=== PATIENT | female | born 1955 | race African-American/Black ===

== ENCOUNTER 2018-02-05 20:56 | Inpatient (IN) | payer MEDICARE, MEDICAID ==
[~2018-02-05] VITALS: Ht 157.5 cm; Wt 72.8 kg
[2018-02-05] MEDS ORDERED: SODIUM CHLORIDE 0.9% 1,000 ML IV ONE (21:51)
[2018-02-05] MEDS ORDERED: ONDANSETRON HCL 4MG/2ML INJ IV STA (21:51)
[2018-02-05] MEDS ORDERED: ACETAMINOPHEN 325MG TABLET PO ONE (22:00)
[2018-02-05 22:41] LABS: EOSINOPHILS % 0.2 % (0.0-5.0); HEMATOCRIT. 39.3 % (36.0-48.0); HEMOGLOBIN. 13.2 g/dL (12.0-16.0); LYMPHOCYTES % 22.1 % (20.0-50.0); MEAN CORPUSCULAR HEMOGLOBIN 32.5 pg (28.0-32.0); MEAN CORPUSCULAR VOLUME 97.3 fL (81.0-99.0); MEAN PLATELET VOLUME 8.2 fl (7.4-10.4); MONOCYTES % 11.8 % (2.0-8.0); NEUTROPHILS % 64.9 % (40.0-76.0); PLATELET 262 x1000/uL (130-400); RED BLOOD CELL COUNT 4.04 mill/uL (4.2-5.4); RED CELL DISTRIBUTION WIDTH 14.5 % (11.6-14.6)
[2018-02-05 22:51] LABS: PARTIAL THROMBOPLASTIN TIME 27.8 sec (23.4-31.0); PROTHROMBIN TIME 10.3 sec (9.1-11.1)
[2018-02-05 22:52] LABS: CHLORIDE 102 mEq/L (98-107)
[2018-02-06] MEDS ORDERED: ASPIRIN 325MG EC TABLET PO ONE (01:00)
[2018-02-06 03:25] VITALS: BP 136/76
[2018-02-06] MEDS ORDERED: ONDANSETRON HCL 4MG/2ML INJ IV PRN (07:00)
[2018-02-06] MEDS ORDERED: IPRATROPIUM/ALBUTEROL 0.5-3(2.5)MG/3ML NEB INH PRN (07:00)
[2018-02-06] MEDS ORDERED: LORAZEPAM 2MG/ML CPJ IV PRN (07:00)
[2018-02-06 08:00] VITALS: BP 136/67
[2018-02-06] MEDS: INSULIN LISPRO 100 UNITS/ML SUBCUT SCH ×4 (08:10→21:00)
[2018-02-06] MEDS ORDERED: DEXTROSE 50% WATER 50ML SYRINGE IV PRN (08:15)
[2018-02-06] MEDS: BLOOD SUGAR DIAGNOSTIC STRIP TEST SCH ×4 (08:24→21:10)
[2018-02-06] MEDS: ENOXAPARIN 40MG/0.4ML SYR SUBCUT SCH (08:28)
[2018-02-06] MEDS ORDERED: ENOXAPARIN 40MG/0.4ML SYR SUBCUT SCH (09:00)
[2018-02-06 10:50] LABS: CHLORIDE 106 mEq/L (98-107)
[2018-02-06 11:00] LABS: ETHANOL BLOOD < 10 mg/dL; HDL CHOLESTEROL 61 mg/dL (40-59); LDL CHOLESTEROL 104 mg/dL (5-100); T4 FREE 1.06 ng/dL (0.76-1.46)
[2018-02-06 11:23] LABS: VITAMIN B12 SERUM 251 pg/mL (211-911)
[2018-02-06 11:30] LABS: FOLIC ACID (FOLATE) SERUM > 20.00 ng/mL (>5.38)
[2018-02-06] MEDS: CLOPIDOGREL 75MG TABLET PO SCH (12:23)
[2018-02-06] MEDS ORDERED: ALEN70TA46 MT (12:59)
[2018-02-06] MEDS ORDERED: FERR325T6 MT (12:59)
[2018-02-06] MEDS ORDERED: HYDR200T35 PO (12:59)
[2018-02-06] MEDS ORDERED: CALC1TAB99 PO (12:59)
[2018-02-06] MEDS ORDERED: ERGO2000 PO (12:59)
[2018-02-06 16:00] VITALS: BP 147/85
[2018-02-06 16:48] LABS: CREATINE KINASE 464 IU/L (26-192); CREATINE KINASE MB FRACTION < 1.0 ng/mL (0.5-3.6)
[2018-02-06] MEDS: DOCUSATE SODIUM 100MG CAPSULE PO SCH (17:26)
[2018-02-06] MEDS: HYDROXYCHLOROQUINE SULFATE 200MG TABLET PO SCH (17:26)
[2018-02-06] MEDS: CYANOCOBALAMIN 1000MCG/ML VIAL IM SCH (18:58)
[2018-02-06 20:00] VITALS: BP 149/99
[2018-02-06] MEDS: POLYETHYLENE GLYCOL 3350 (17GM) 1 DOSE PACK PO SCH (21:00)
[2018-02-06] MEDS: ATORVASTATIN CALCIUM 40MG TABLET PO SCH (21:11)
[2018-02-06 23:41] LABS: CREATINE KINASE 445 IU/L (26-192); CREATINE KINASE MB FRACTION < 1.0 ng/mL (0.5-3.6)
[2018-02-07] VITALS: BP 146/87
[2018-02-07 04:00] VITALS: BP 142/92
[2018-02-07] MEDS: BLOOD SUGAR DIAGNOSTIC STRIP TEST SCH ×4 (07:40→21:00)
[2018-02-07 07:47] LABS: BASOPHILS % 0.6 % (0.0-2.0); EOSINOPHILS % 0.7 % (0.0-5.0); HEMATOCRIT. 36.2 % (36.0-48.0); HEMOGLOBIN. 12.3 g/dL (12.0-16.0); LYMPHOCYTES % 34.7 % (20.0-50.0); MEAN CORPUSCULAR HEMOGLOBIN 32.8 pg (28.0-32.0); MEAN CORPUSCULAR VOLUME 96.4 fL (81.0-99.0); MEAN PLATELET VOLUME 8.1 fl (7.4-10.4); MONOCYTES % 14.9 % (2.0-8.0); NEUTROPHILS % 49.1 % (40.0-76.0); PLATELET 251 x1000/uL (130-400); RED BLOOD CELL COUNT 3.76 mill/uL (4.2-5.4); RED CELL DISTRIBUTION WIDTH 14.2 % (11.6-14.6)
[2018-02-07 08:00] VITALS: BP 142/82
[2018-02-07] MEDS: INSULIN LISPRO 100 UNITS/ML SUBCUT SCH ×4 (08:10→21:00)
[2018-02-07 08:12] LABS: CHLORIDE 105 mEq/L (98-107)
[2018-02-07 08:15] LABS: PHOSPHORUS 2.4 mg/dL (2.5-4.9)
[2018-02-07 09:12] LABS: *AMPHETAMINES SCREEN URINE NEGATIVE (NEGATIVE); *BARBITURATES SCREEN URINE NEGATIVE (NEGATIVE); *BENZODIAZEPINES SCREEN URINE NEGATIVE (NEGATIVE); *COCAINE SCREEN URINE NEGATIVE (NEGATIVE)
[2018-02-07 09:15] LABS: CANNABINOID URINE SCREEN PRESUMTIVE POSITIVE (NEGATIVE); METHADONE URINE SCREEN NEGATIVE (NEGATIVE); OPIATES URINE SCREEN NEGATIVE (NEGATIVE); PHENCYCLIDINE URINE SCREEN NEGATIVE (NEGATIVE)
[2018-02-07] MEDS: CYANOCOBALAMIN 1000MCG/ML VIAL IM SCH (09:33)
[2018-02-07] MEDS: ENOXAPARIN 40MG/0.4ML SYR SUBCUT SCH (09:33)
[2018-02-07] MEDS: DOCUSATE SODIUM 100MG CAPSULE PO SCH ×2 (09:34→17:30)
[2018-02-07] MEDS: CLOPIDOGREL 75MG TABLET PO SCH (09:34)
[2018-02-07] MEDS: HYDROXYCHLOROQUINE SULFATE 200MG TABLET PO SCH (09:34)
[2018-02-07 12:00] VITALS: BP 124/85
[2018-02-07] MEDS: ACETAMINOPHEN 325MG TABLET PO PRN (15:52)
[2018-02-07 16:00] VITALS: BP 143/91
[2018-02-07] MEDS: CLONIDINE 0.1MG TABLET PO PRN (18:56)
[2018-02-07 19:08] LABS: ANTI-NUCLEAR ANTIBODIES DIRECT Positive (Negative)
[2018-02-07] MEDS: POLYETHYLENE GLYCOL 3350 (17GM) 1 DOSE PACK PO SCH (21:00)
[2018-02-07] MEDS: ATORVASTATIN CALCIUM 40MG TABLET PO SCH (21:00)
[2018-02-07 22:00] VITALS: BP 159/96
[2018-02-08] VITALS (39 sets, daily range): BP systolic 104–184; BP diastolic 54–134
[2018-02-08 00:15] LABS: CREATINE KINASE 293 IU/L (26-192); CREATINE KINASE MB FRACTION < 1.0 ng/mL (0.5-3.6)
[2018-02-08 05:39] LABS: BG BASE EXCESS -3.1 mmol/L (-2.0-2.0); BG CARBOXYHEMOGLOBIN 0.9 % (0.5-1.5); BG DEOXYHEMOGLOBIN 4.2 % (0.0-5.0); BG FRACTION INSPIRED OXYGEN 28; BG HCO3 ACT 20.6 mmol/L (22.0-26.0); BG METHEMOGLOBIN 0.3 % (0.0-1.5); BG OXYGEN SATURATION 95.7 % (92.0-98.5); BG OXYHEMOGLOBIN 94.6 % (94.0-97.0); BG PCO2 33.1 mmHg (35.0-45.0); BG PH 7.412 (7.350-7.450); BG PO2 83.4 mmHg (75.0-100.0); BG SAMPLE SITE LEFT RADIAL; BG TOTAL HEMOGLOBIN 13.8 g/dL (12.0-18.0); BG VENT MODE NASAL CANNULA
[2018-02-08 06:23] LABS: BASOPHILS % 0.3 % (0.0-2.0); HEMATOCRIT. 40.3 % (36.0-48.0); HEMOGLOBIN. 13.3 g/dL (12.0-16.0); MEAN CORPUSCULAR HEMOGLOBIN 32.3 pg (28.0-32.0); MEAN CORPUSCULAR VOLUME 97.7 fL (81.0-99.0); MONOCYTES % 5.6 % (2.0-8.0); NEUTROPHILS % 84.1 % (40.0-76.0); PLATELET 260 x1000/uL (130-400); RED BLOOD CELL COUNT 4.12 mill/uL (4.2-5.4); RED CELL DISTRIBUTION WIDTH 14.2 % (11.6-14.6)
[2018-02-08] MEDS: BLOOD SUGAR DIAGNOSTIC STRIP TEST SCH ×3 (07:42→21:00)
[2018-02-08] MEDS: INSULIN LISPRO 100 UNITS/ML SUBCUT SCH ×3 (08:00→21:21)
[2018-02-08 08:08] LABS: CHLORIDE 103 mEq/L (98-107)
[2018-02-08 08:13] LABS: PHOSPHORUS 3.6 mg/dL (2.5-4.9)
[2018-02-08] MEDS: DOCUSATE SODIUM 100MG CAPSULE PO SCH ×2 (09:00→16:23)
[2018-02-08] MEDS: CLOPIDOGREL 75MG TABLET PO SCH (09:00)
[2018-02-08] MEDS: HYDROXYCHLOROQUINE SULFATE 200MG TABLET PO SCH (09:00)
[2018-02-08] MEDS: ENOXAPARIN 40MG/0.4ML SYR SUBCUT SCH (09:55)
[2018-02-08] MEDS: CYANOCOBALAMIN 1000MCG/ML VIAL IM SCH (09:57)
[2018-02-08 15:32] LABS: AMMONIA < 10 uMol/L (<32)
[2018-02-08] MEDS ORDERED: DEXAMETHASONE 10 MG/ML VIAL IV NR (18:30)
[2018-02-08] MEDS ORDERED: MANNITOL 20% (20GM/100ML) BAG 500ML PREMIX IV ONE (18:45)
[2018-02-08] MEDS: NICARDIPINE 100 MG in SODIUM CHLORIDE 0.9% 60 ML IV PRN (18:46)
[2018-02-08] MEDS: DEXT 5%/LACTATED RINGERS 1,000 ML IV SCH (18:47)
[2018-02-08] MEDS ORDERED: MANNITOL 20% 200 ML IV NR (19:00)
[2018-02-08] MEDS ORDERED: PROTAMINE SULFATE 10MG/ML VIAL 5ML IV NR (20:45)
[2018-02-08] MEDS ORDERED: LEVETIRACETAM 500MG/5ML CUP PO SCH (21:00)
[2018-02-08] MEDS: ATORVASTATIN CALCIUM 40MG TABLET PO SCH (21:00)
[2018-02-08] MEDS: POLYETHYLENE GLYCOL 3350 (17GM) 1 DOSE PACK PO SCH (21:00)
[2018-02-08] MEDS ORDERED: POVIDONE-IODINE OINT 28.4GM TOP ONE (21:16)
[2018-02-08] MEDS ORDERED: NORMAL SALINE 0.9% 10 ML SYR ONE (21:17)
[2018-02-08] MEDS ORDERED: BACITRACIN ZINC 15GM TUBE TOP ONE (21:17)
[2018-02-08] MEDS ORDERED: THROMBIN (BOVINE) 5000 UNITS/VIAL TOP ONE (21:17)
[2018-02-08] MEDS ORDERED: GELATIN SPONGE,COMPRESSED SZ 100 ONE (21:18)
[2018-02-08] MEDS ORDERED: LIDOCAINE HCL/EPINEPHRINE 1%-EPI 1:100,000 20 ML VIAL ONE (21:18)
[2018-02-08] MEDS ORDERED: BACITRACIN 50,000 UNITS/VIAL ONE (21:18)
[2018-02-08] MEDS ORDERED: FENTANYL CITRATE/PF 50MCG/ML 5ML VIAL ONE (21:32)
[2018-02-08] MEDS ORDERED: PROPOFOL 200MG/20ML VIAL IV ONE (21:32)
[2018-02-08] MEDS ORDERED: MIDAZOLAM HCL 2 MG/2 ML VIAL ONE (21:32)
[2018-02-08] MEDS ORDERED: ROCURONIUM BROMIDE 10MG/ML VIAL 5ML IV ONE (21:32)
[2018-02-08] MEDS: LEVETIRACETAM 500 MG in SODIUM CHLORIDE 0.9% 100 ML IV SCH (21:39)
[2018-02-08] MEDS ORDERED: CEFAZOLIN SODIUM 1000MG/VIAL IV SCH (22:00)
[2018-02-08] MEDS ORDERED: CEFAZOLIN SODIUM 1000MG/VIAL ONE (22:40)
[2018-02-08] MEDS ORDERED: FENTANYL CITRATE/PF 50MCG/ML 2ML VIAL IV PRN (23:45)
[2018-02-08] MEDS ORDERED: ONDANSETRON HCL 4MG/2ML INJ IV PRN (23:45)
[2018-02-08] MEDS ORDERED: HYDROMORPHONE HCL/PF 2MG/ML CPJ IV PRN (23:45)
[2018-02-08] MEDS ORDERED: ATROPINE SULFATE 1MG/10ML SYR IV PRN (23:45)
[2018-02-09] VITALS (124 sets, daily range): BP systolic 90–180; BP diastolic 54–132
[2018-02-09] MEDS ORDERED: DEXAMETHASONE 10 MG/ML VIAL IV SCH
[2018-02-09] MEDS: PROPOFOL 10MG/ML 100ML 100 ML IV PRN ×4 (00:14→20:51)
[2018-02-09] MEDS: CEFAZOLIN 1000MG PREMIX 50 ML IV SCH ×4 (00:14→22:42)
[2018-02-09] MEDS: DEXAMETHASONE 4MG/ML 1ML VIAL IV SCH ×5 (00:14→23:28)
[2018-02-09] MEDS: LACTATED RINGERS 1,000 ML IV SCH ×2 (00:15→02:53)
[2018-02-09 00:43] LABS: BG BASE EXCESS -2.1 mmol/L (-2.0-2.0); BG CARBOXYHEMOGLOBIN 0.1 % (0.5-1.5); BG DEOXYHEMOGLOBIN 3.5 % (0.0-5.0); BG FRACTION INSPIRED OXYGEN 50; BG HCO3 ACT 21.8 mmol/L (22.0-26.0); BG METHEMOGLOBIN 0.3 % (0.0-1.5); BG OXYGEN SATURATION 96.5 % (92.0-98.5); BG OXYHEMOGLOBIN 96.1 % (94.0-97.0); BG PCO2 34.3 mmHg (35.0-45.0); BG PH 7.421 (7.350-7.450); BG PO2 89.8 mmHg (75.0-100.0); BG SAMPLE SITE A-LINE; BG TIDAL VOLUME(mL) 550 mL; BG VENT MODE VENT - A/C; BG VENT RATE 10 set
[2018-02-09] MEDS: NICARDIPINE 100 MG in SODIUM CHLORIDE 0.9% 60 ML IV PRN (02:54)
[2018-02-09] MEDS: BLOOD SUGAR DIAGNOSTIC STRIP TEST SCH ×4 (05:21→23:28)
[2018-02-09 06:02] LABS: HEMATOCRIT. 33.5 % (36.0-48.0); HEMOGLOBIN. 11.3 g/dL (12.0-16.0); MEAN CORPUSCULAR HEMOGLOBIN 32.7 pg (28.0-32.0); MEAN CORPUSCULAR VOLUME 96.6 fL (81.0-99.0); MEAN PLATELET VOLUME 8.3 fl (7.4-10.4); PLATELET 273 x1000/uL (130-400); RED BLOOD CELL COUNT 3.47 mill/uL (4.2-5.4); RED CELL DISTRIBUTION WIDTH 14.3 % (11.6-14.6)
[2018-02-09 06:08] LABS: PROTHROMBIN TIME 9.9 sec (9.1-11.1)
[2018-02-09] MEDS: INSULIN LISPRO 100 UNITS/ML SUBCUT SCH ×4 (06:09→23:28)
[2018-02-09 06:29] LABS: CHLORIDE 104 mEq/L (98-107)
[2018-02-09] MEDS ORDERED: LIDOCAINE HCL 1% 20ML VIAL (Pyxis) INJ ONE (07:29)
[2018-02-09] MEDS ORDERED: CYANOCOBALAMIN 1000MCG TABLET PO SCH (08:00)
[2018-02-09] MEDS: HYDROXYCHLOROQUINE SULFATE 200MG TABLET PO SCH (09:00)
[2018-02-09] MEDS: DOCUSATE SODIUM 100MG CAPSULE PO SCH (09:00)
[2018-02-09] MEDS ORDERED: IPRATROPIUM/ALBUTEROL 0.5-3(2.5)MG/3ML NEB HHN PRN (09:45)
[2018-02-09] MEDS: MORPHINE SULFATE 4 MG/ML CPJ (NOT FOR IM USE) IV PRN (09:55)
[2018-02-09] MEDS: PANTOPRAZOLE SODIUM 40 MG/VIAL IV SCH (10:00)
[2018-02-09] MEDS: LEVETIRACETAM 500 MG in SODIUM CHLORIDE 0.9% 100 ML IV SCH ×2 (10:00→21:22)
[2018-02-09 11:12] LABS: PLATELET ESTIMATE NORMAL
[2018-02-09] MEDS ORDERED: LIDOCAINE 2% JELLY APPLIC 5 ML MM SCH (13:00)
[2018-02-09] MEDS: IPRATROPIUM/ALBUTEROL 0.5-3(2.5)MG/3ML NEB HHN SCH ×2 (13:26→20:49)
[2018-02-09] MEDS: DEXT 5%/LACTATED RINGERS 1,000 ML IV SCH (14:34)
[2018-02-09] MEDS: CYANOCOBALAMIN 1000MCG/ML VIAL IM SCH (15:00)
[2018-02-09] MEDS ORDERED: DOCUSATE SODIUM SUGAR FREE 100MG/10ML UDC NG NR (17:15)
[2018-02-09] MEDS: ATORVASTATIN CALCIUM 40MG TABLET PO SCH (20:51)
[2018-02-09] MEDS: POLYETHYLENE GLYCOL 3350 (17GM) 1 DOSE PACK PO SCH (20:52)
[2018-02-10] VITALS (95 sets, daily range): BP systolic 93–153; BP diastolic 31–111
[2018-02-10] MEDS: IPRATROPIUM/ALBUTEROL 0.5-3(2.5)MG/3ML NEB HHN SCH ×4 (02:08→19:45)
[2018-02-10] MEDS: PROPOFOL 10MG/ML 100ML 100 ML IV PRN ×3 (02:35→22:42)
[2018-02-10] MEDS: INSULIN LISPRO 100 UNITS/ML SUBCUT SCH ×4 (06:00→23:33)
[2018-02-10] MEDS: BLOOD SUGAR DIAGNOSTIC STRIP TEST SCH ×4 (06:03→23:23)
[2018-02-10] MEDS: CEFAZOLIN 1000MG PREMIX 50 ML IV SCH ×3 (06:04→23:04)
[2018-02-10] MEDS: DEXAMETHASONE 4MG/ML 1ML VIAL IV SCH ×4 (06:04→23:33)
[2018-02-10 07:18] LABS: COMPLEMENT C3 143 mg/dL (82-167)
[2018-02-10] MEDS: CYANOCOBALAMIN 1000MCG/ML VIAL IM SCH (08:19)
[2018-02-10] MEDS: PANTOPRAZOLE SODIUM 40 MG/VIAL IV SCH (08:19)
[2018-02-10] MEDS: DOCUSATE SODIUM SUGAR FREE 100MG/10ML UDC NG SCH ×2 (08:19→17:29)
[2018-02-10] MEDS: LEVETIRACETAM 500 MG in SODIUM CHLORIDE 0.9% 100 ML IV SCH ×2 (08:22→21:16)
[2018-02-10] MEDS: DEXT 5%/LACTATED RINGERS 1,000 ML IV SCH (14:07)
[2018-02-10] MEDS: NICARDIPINE 100 MG in SODIUM CHLORIDE 0.9% 60 ML IV PRN (19:20)
[2018-02-10] MEDS: ATORVASTATIN CALCIUM 40MG TABLET PO SCH (21:16)
[2018-02-10] MEDS: POLYETHYLENE GLYCOL 3350 (17GM) 1 DOSE PACK PO SCH (21:17)
[2018-02-11] VITALS (108 sets, daily range): BP systolic 100–156; BP diastolic 56–107
[2018-02-11] MEDS: IPRATROPIUM/ALBUTEROL 0.5-3(2.5)MG/3ML NEB HHN SCH ×2 (02:00→08:40)
[2018-02-11] MEDS: DEXAMETHASONE 4MG/ML 1ML VIAL IV SCH ×4 (06:15→23:05)
[2018-02-11] MEDS: PROPOFOL 10MG/ML 100ML 100 ML IV PRN (06:16)
[2018-02-11] MEDS: BLOOD SUGAR DIAGNOSTIC STRIP TEST SCH ×4 (06:16→23:02)
[2018-02-11] MEDS: INSULIN LISPRO 100 UNITS/ML SUBCUT SCH ×4 (06:33→23:06)
[2018-02-11] MEDS: PANTOPRAZOLE SODIUM 40 MG/VIAL IV SCH (08:20)
[2018-02-11] MEDS: CYANOCOBALAMIN 1000MCG/ML VIAL IM SCH (08:20)
[2018-02-11] MEDS: MORPHINE SULFATE 4 MG/ML CPJ (NOT FOR IM USE) IV PRN (08:22)
[2018-02-11] MEDS: DOCUSATE SODIUM SUGAR FREE 100MG/10ML UDC NG SCH ×2 (08:23→16:33)
[2018-02-11] MEDS: LEVETIRACETAM 500 MG in SODIUM CHLORIDE 0.9% 100 ML IV SCH ×2 (09:00→20:26)
[2018-02-11] MEDS: DEXT 5%/LACTATED RINGERS 1,000 ML IV SCH (09:04)
[2018-02-11 09:19] LABS: HEMOGLOBIN. 12.4 g/dL (12.0-16.0); MEAN CORPUSCULAR HEMOGLOBIN 32.6 pg (28.0-32.0); MEAN CORPUSCULAR VOLUME 97.2 fL (81.0-99.0); MEAN PLATELET VOLUME 8.3 fl (7.4-10.4); PLATELET 254 x1000/uL (130-400); RED BLOOD CELL COUNT 3.81 mill/uL (4.2-5.4); RED CELL DISTRIBUTION WIDTH 14.2 % (11.6-14.6)
[2018-02-11 11:24] LABS: CHLORIDE 110 mEq/L (98-107)
[2018-02-11 11:26] LABS: PLATELET ESTIMATE NORMAL
[2018-02-11] MEDS ORDERED: BISACODYL 10MG SUPP PR PRN (11:30)
[2018-02-11] MEDS: ACETAMINOPHEN 325MG TABLET PO PRN ×2 (12:45→19:37)
[2018-02-11] MEDS ORDERED: PROPOFOL 10MG/ML 100ML 100 ML IV PRN (13:00)
[2018-02-11 15:42] LABS: BG BASE EXCESS 1.8 mmol/L (-2.0-2.0); BG CARBOXYHEMOGLOBIN 0.3 % (0.5-1.5); BG DEOXYHEMOGLOBIN 5.6 % (0.0-5.0); BG FRACTION INSPIRED OXYGEN 40; BG HCO3 ACT 25.5 mmol/L (22.0-26.0); BG METHEMOGLOBIN 0.5 % (0.0-1.5); BG OXYGEN SATURATION 94.4 % (92.0-98.5); BG OXYHEMOGLOBIN 93.6 % (94.0-97.0); BG PCO2 36.7 mmHg (35.0-45.0); BG PO2 72.2 mmHg (75.0-100.0); BG PRESSURE SUPPORT 8; BG SAMPLE SITE RIGHT RADIAL; BG TOTAL HEMOGLOBIN 12.1 g/dL (12.0-18.0); BG VENT MODE VENT - CPAP
[2018-02-11] MEDS: HYDROXYCHLOROQUINE SULFATE 200MG TABLET PO SCH (16:34)
[2018-02-11] MEDS: CLONIDINE 0.1MG TABLET PO PRN (16:36)
[2018-02-11] MEDS: POLYETHYLENE GLYCOL 3350 (17GM) 1 DOSE PACK PO SCH (20:13)
[2018-02-11] MEDS: ATORVASTATIN CALCIUM 40MG TABLET PO SCH (20:14)
[2018-02-12] VITALS (36 sets, daily range): BP systolic 104–144; BP diastolic 74–102
[2018-02-12] MEDS: BLOOD SUGAR DIAGNOSTIC STRIP TEST SCH ×4 (05:34→23:47)
[2018-02-12] MEDS: DEXAMETHASONE 4MG/ML 1ML VIAL IV SCH ×4 (05:41→23:47)
[2018-02-12] MEDS: INSULIN LISPRO 100 UNITS/ML SUBCUT SCH ×4 (05:42→23:48)
[2018-02-12 05:48] LABS: HEMATOCRIT. 34.6 % (36.0-48.0); HEMOGLOBIN. 11.4 g/dL (12.0-16.0); MEAN CORPUSCULAR HEMOGLOBIN 32.2 pg (28.0-32.0); MEAN CORPUSCULAR VOLUME 97.6 fL (81.0-99.0); MEAN PLATELET VOLUME 8.3 fl (7.4-10.4); PLATELET 225 x1000/uL (130-400); RED BLOOD CELL COUNT 3.54 mill/uL (4.2-5.4); RED CELL DISTRIBUTION WIDTH 14.2 % (11.6-14.6)
[2018-02-12 06:06] LABS: CHLORIDE 106 mEq/L (98-107)
[2018-02-12 06:07] LABS: PHOSPHORUS 3.4 mg/dL (2.5-4.9)
[2018-02-12] MEDS: IPRATROPIUM/ALBUTEROL 0.5-3(2.5)MG/3ML NEB HHN SCH ×3 (07:40→20:20)
[2018-02-12] MEDS: LEVETIRACETAM 500 MG in SODIUM CHLORIDE 0.9% 100 ML IV SCH ×2 (10:00→20:22)
[2018-02-12] MEDS: PANTOPRAZOLE SODIUM 40 MG/VIAL IV SCH (12:43)
[2018-02-12] MEDS: HYDROXYCHLOROQUINE SULFATE 200MG TABLET PO SCH (12:50)
[2018-02-12] MEDS: DOCUSATE SODIUM SUGAR FREE 100MG/10ML UDC NG SCH ×2 (12:50→17:00)
[2018-02-12] MEDS ORDERED: CYANOCOBALAMIN 1000MCG/ML VIAL IM SCH (12:50)
[2018-02-12] MEDS: CYANOCOBALAMIN 1000MCG/ML VIAL IM SCH (13:23)
[2018-02-12 13:27] LABS: PLATELET ESTIMATE NORMAL
[2018-02-12] MEDS ORDERED: AMLODIPINE 5MG TABLET NG ONE (13:45)
[2018-02-12] MEDS: CLONIDINE 0.1MG TABLET PO PRN (17:28)
[2018-02-12] MEDS: AMLODIPINE 5MG TABLET NG SCH (19:46)
[2018-02-12] MEDS: ATORVASTATIN CALCIUM 40MG TABLET PO SCH (20:22)
[2018-02-12] MEDS: POLYETHYLENE GLYCOL 3350 (17GM) 1 DOSE PACK PO SCH (20:23)
[2018-02-13] VITALS (31 sets, daily range): BP systolic 114–140; BP diastolic 66–102
[2018-02-13] MEDS: IPRATROPIUM/ALBUTEROL 0.5-3(2.5)MG/3ML NEB HHN SCH ×4 (01:58→21:45)
[2018-02-13] MEDS: BLOOD SUGAR DIAGNOSTIC STRIP TEST SCH ×3 (05:51→18:00)
[2018-02-13] MEDS: DEXAMETHASONE 4MG/ML 1ML VIAL IV SCH ×3 (05:51→19:17)
[2018-02-13] MEDS: INSULIN LISPRO 100 UNITS/ML SUBCUT SCH ×3 (05:51→18:00)
[2018-02-13] MEDS: LEVETIRACETAM 500 MG in SODIUM CHLORIDE 0.9% 100 ML IV SCH ×2 (09:15→21:18)
[2018-02-13] MEDS: PANTOPRAZOLE SODIUM 40 MG/VIAL IV SCH ×2 (09:15→21:18)
[2018-02-13] MEDS: HYDROXYCHLOROQUINE SULFATE 200MG TABLET PO SCH (09:15)
[2018-02-13] MEDS: DOCUSATE SODIUM SUGAR FREE 100MG/10ML UDC NG SCH ×2 (09:15→19:17)
[2018-02-13 10:19] LABS: BASOPHILS % 0.1 % (0.0-2.0); HEMATOCRIT. 36.6 % (36.0-48.0); HEMOGLOBIN. 12.3 g/dL (12.0-16.0); LYMPHOCYTES % 8.3 % (20.0-50.0); MEAN CORPUSCULAR HEMOGLOBIN 32.7 pg (28.0-32.0); MEAN CORPUSCULAR VOLUME 97.3 fL (81.0-99.0); MEAN PLATELET VOLUME 7.9 fl (7.4-10.4); MONOCYTES % 6.4 % (2.0-8.0); NEUTROPHILS % 85.2 % (40.0-76.0); PLATELET 199 x1000/uL (130-400); RED BLOOD CELL COUNT 3.76 mill/uL (4.2-5.4); RED CELL DISTRIBUTION WIDTH 13.9 % (11.6-14.6)
[2018-02-13 10:34] LABS: CHLORIDE 103 mEq/L (98-107)
[2018-02-13 10:40] LABS: BG BASE EXCESS 3.2 mmol/L (-2.0-2.0); BG CARBOXYHEMOGLOBIN 0.3 % (0.5-1.5); BG DEOXYHEMOGLOBIN 5.1 % (0.0-5.0); BG FRACTION INSPIRED OXYGEN 32; BG HCO3 ACT 26.3 mmol/L (22.0-26.0); BG METHEMOGLOBIN 0.2 % (0.0-1.5); BG OXYGEN SATURATION 94.9 % (92.0-98.5); BG OXYHEMOGLOBIN 94.4 % (94.0-97.0); BG PCO2 34.9 mmHg (35.0-45.0); BG PH 7.495 (7.350-7.450); BG PO2 70.7 mmHg (75.0-100.0); BG SAMPLE SITE RIGHT BRACHIAL; BG TOTAL HEMOGLOBIN 12.4 g/dL (12.0-18.0); BG VENT MODE NASAL CANNULA
[2018-02-13] MEDS: ATORVASTATIN CALCIUM 40MG TABLET PO SCH (21:18)
[2018-02-13] MEDS: POLYETHYLENE GLYCOL 3350 (17GM) 1 DOSE PACK PO SCH (21:18)
[2018-02-13] MEDS: AMLODIPINE 5MG TABLET NG SCH (21:18)
[2018-02-14] VITALS (30 sets, daily range): BP systolic 97–136; BP diastolic 70–98
[2018-02-14] MEDS: INSULIN LISPRO 100 UNITS/ML SUBCUT SCH ×5 (00:19→23:33)
[2018-02-14] MEDS: DEXAMETHASONE 4MG/ML 1ML VIAL IV SCH ×5 (00:19→23:33)
[2018-02-14] MEDS: IPRATROPIUM/ALBUTEROL 0.5-3(2.5)MG/3ML NEB HHN SCH ×4 (01:57→19:40)
[2018-02-14] MEDS: BLOOD SUGAR DIAGNOSTIC STRIP TEST SCH ×5 (05:23→23:33)
[2018-02-14] MEDS: PANTOPRAZOLE SODIUM 40 MG/VIAL IV SCH ×2 (09:23→21:00)
[2018-02-14] MEDS: DOCUSATE SODIUM SUGAR FREE 100MG/10ML UDC NG SCH ×2 (09:23→17:36)
[2018-02-14] MEDS: HYDROXYCHLOROQUINE SULFATE 200MG TABLET PO SCH (09:23)
[2018-02-14] MEDS: LEVETIRACETAM 500 MG in SODIUM CHLORIDE 0.9% 100 ML IV SCH ×2 (09:23→21:00)
[2018-02-14] MEDS: POLYETHYLENE GLYCOL 3350 (17GM) 1 DOSE PACK PO SCH (21:00)
[2018-02-14] MEDS: AMLODIPINE 5MG TABLET NG SCH (21:00)
[2018-02-14] MEDS: ATORVASTATIN CALCIUM 40MG TABLET PO SCH (21:00)
[2018-02-15 00:21] VITALS: BP 110/70
[2018-02-15] MEDS: IPRATROPIUM/ALBUTEROL 0.5-3(2.5)MG/3ML NEB HHN SCH ×4 (01:40→20:30)
[2018-02-15 04:00] VITALS: BP 130/86
[2018-02-15] MEDS: DEXAMETHASONE 4MG/ML 1ML VIAL IV SCH ×3 (05:08→18:05)
[2018-02-15] MEDS: INSULIN LISPRO 100 UNITS/ML SUBCUT SCH ×3 (05:39→18:00)
[2018-02-15] MEDS: BLOOD SUGAR DIAGNOSTIC STRIP TEST SCH ×3 (05:39→18:00)
[2018-02-15 07:19] LABS: INR 1.1; PROTHROMBIN TIME 11.1 sec (9.1-11.1)
[2018-02-15 07:38] LABS: MEAN CORPUSCULAR HEMOGLOBIN 32.4 pg (28.0-32.0); MEAN CORPUSCULAR VOLUME 96.8 fL (81.0-99.0); MEAN PLATELET VOLUME 8.6 fl (7.4-10.4); PLATELET 204 x1000/uL (130-400); RED BLOOD CELL COUNT 3.72 mill/uL (4.2-5.4); RED CELL DISTRIBUTION WIDTH 14.1 % (11.6-14.6)
[2018-02-15 08:00] VITALS: BP 133/92
[2018-02-15 08:13] LABS: CHLORIDE 102 mEq/L (98-107)
[2018-02-15 08:44] LABS: ATYPICAL LYMPHOCYTES 2
[2018-02-15 08:45] LABS: PLATELET ESTIMATE NORMAL
[2018-02-15] MEDS ORDERED: CEFAZOLIN 1000MG PREMIX 50 ML IV ONE (09:00)
[2018-02-15] MEDS: HYDROXYCHLOROQUINE SULFATE 200MG TABLET PO SCH (09:00)
[2018-02-15] MEDS: DOCUSATE SODIUM SUGAR FREE 100MG/10ML UDC NG SCH ×2 (09:00→17:38)
[2018-02-15] MEDS: LEVETIRACETAM 500 MG in SODIUM CHLORIDE 0.9% 100 ML IV SCH ×2 (09:15→21:23)
[2018-02-15] MEDS ORDERED: CEFAZOLIN 1000MG PREMIX 50 ML IV NR (09:30)
[2018-02-15 12:00] VITALS: BP 128/88
[2018-02-15 16:00] VITALS: BP 120/80
[2018-02-15 20:00] VITALS: BP 109/72
[2018-02-15] MEDS: POLYETHYLENE GLYCOL 3350 (17GM) 1 DOSE PACK PO SCH (20:20)
[2018-02-15] MEDS: ATORVASTATIN CALCIUM 40MG TABLET PO SCH (20:20)
[2018-02-15] MEDS: AMLODIPINE 5MG TABLET NG SCH (21:00)
[2018-02-16 00:12] VITALS: BP 106/70
[2018-02-16] MEDS: DEXAMETHASONE 4MG/ML 1ML VIAL IV SCH ×4 (00:21→17:34)
[2018-02-16] MEDS: BLOOD SUGAR DIAGNOSTIC STRIP TEST SCH ×4 (00:29→17:55)
[2018-02-16] MEDS: INSULIN LISPRO 100 UNITS/ML SUBCUT SCH ×4 (00:36→17:55)
[2018-02-16] MEDS: IPRATROPIUM/ALBUTEROL 0.5-3(2.5)MG/3ML NEB HHN SCH ×3 (01:22→14:32)
[2018-02-16 04:00] VITALS: BP 117/80
[2018-02-16 08:00] VITALS: BP 121/89
[2018-02-16] MEDS: DOCUSATE SODIUM SUGAR FREE 100MG/10ML UDC NG SCH ×2 (09:32→17:30)
[2018-02-16] MEDS: LEVETIRACETAM 500 MG in SODIUM CHLORIDE 0.9% 100 ML IV SCH ×2 (09:32→21:29)
[2018-02-16] MEDS: HYDROXYCHLOROQUINE SULFATE 200MG TABLET PO SCH (09:32)
[2018-02-16 12:00] VITALS: BP 116/86
[2018-02-16 16:00] VITALS: BP 127/82
[2018-02-16 20:00] VITALS: BP 117/75
[2018-02-16] MEDS: AMLODIPINE 5MG TABLET NG SCH (21:12)
[2018-02-16] MEDS: POLYETHYLENE GLYCOL 3350 (17GM) 1 DOSE PACK PO SCH (22:05)
[2018-02-16] MEDS: ATORVASTATIN CALCIUM 40MG TABLET PO SCH (22:05)
[2018-02-17] VITALS: BP 120/76
[2018-02-17] MEDS: DEXAMETHASONE 4MG/ML 1ML VIAL IV SCH ×5 (00:29→23:23)
[2018-02-17] MEDS: IPRATROPIUM/ALBUTEROL 0.5-3(2.5)MG/3ML NEB HHN SCH ×2 (01:17→21:01)
[2018-02-17 04:00] VITALS: BP 112/75
[2018-02-17] MEDS: BLOOD SUGAR DIAGNOSTIC STRIP TEST SCH ×2 (06:00)
[2018-02-17] MEDS: INSULIN LISPRO 100 UNITS/ML SUBCUT SCH ×4 (06:00→18:31)
[2018-02-17 08:00] VITALS: BP 123/85
[2018-02-17] MEDS: DOCUSATE SODIUM SUGAR FREE 100MG/10ML UDC NG SCH ×2 (09:16→17:23)
[2018-02-17] MEDS: LEVETIRACETAM 500 MG in SODIUM CHLORIDE 0.9% 100 ML IV SCH ×2 (09:16→21:16)
[2018-02-17] MEDS: HYDROXYCHLOROQUINE SULFATE 200MG TABLET PO SCH (09:16)
[2018-02-17 12:00] VITALS: BP 124/84
[2018-02-17 16:00] VITALS: BP 128/90
[2018-02-17 20:00] VITALS: BP 133/90
[2018-02-17] MEDS: ATORVASTATIN CALCIUM 40MG TABLET PO SCH (20:31)
[2018-02-17] MEDS: AMLODIPINE 5MG TABLET NG SCH (20:32)
[2018-02-17] MEDS: POLYETHYLENE GLYCOL 3350 (17GM) 1 DOSE PACK PO SCH (20:32)
[2018-02-18] VITALS: BP 130/72
[2018-02-18] MEDS: IPRATROPIUM/ALBUTEROL 0.5-3(2.5)MG/3ML NEB HHN SCH ×4 (01:04→20:31)
[2018-02-18 04:00] VITALS: BP 186/70
[2018-02-18] MEDS: DEXAMETHASONE 4MG/ML 1ML VIAL IV SCH ×4 (05:41→23:51)
[2018-02-18] MEDS: BLOOD SUGAR DIAGNOSTIC STRIP TEST SCH ×4 (05:46→23:52)
[2018-02-18] MEDS: INSULIN LISPRO 100 UNITS/ML SUBCUT SCH ×5 (06:00→23:51)
[2018-02-18 08:00] VITALS: BP 136/85
[2018-02-18] MEDS: HYDROXYCHLOROQUINE SULFATE 200MG TABLET PO SCH (08:31)
[2018-02-18] MEDS: DOCUSATE SODIUM SUGAR FREE 100MG/10ML UDC NG SCH ×2 (08:34→17:41)
[2018-02-18] MEDS: LEVETIRACETAM 500 MG in SODIUM CHLORIDE 0.9% 100 ML IV SCH ×2 (10:29→21:17)
[2018-02-18 12:00] VITALS: BP 121/80
[2018-02-18 16:00] VITALS: BP 103/79
[2018-02-18 20:00] VITALS: BP 113/74
[2018-02-18] MEDS: POLYETHYLENE GLYCOL 3350 (17GM) 1 DOSE PACK PO SCH (21:17)
[2018-02-18] MEDS: ATORVASTATIN CALCIUM 40MG TABLET PO SCH (21:17)
[2018-02-18] MEDS: AMLODIPINE 5MG TABLET NG SCH (21:18)
[2018-02-19] VITALS (7 sets, daily range): BP systolic 101–121; BP diastolic 70–88
[2018-02-19] MEDS: IPRATROPIUM/ALBUTEROL 0.5-3(2.5)MG/3ML NEB HHN SCH ×5 (01:34→20:10)
[2018-02-19] MEDS: DEXAMETHASONE 4MG/ML 1ML VIAL IV SCH ×4 (05:29→23:27)
[2018-02-19] MEDS: INSULIN LISPRO 100 UNITS/ML SUBCUT SCH ×4 (06:00→23:27)
[2018-02-19] MEDS: BLOOD SUGAR DIAGNOSTIC STRIP TEST SCH ×4 (06:27→23:27)
[2018-02-19] MEDS ORDERED: CYANOCOBALAMIN 1000MCG/ML VIAL INJ SCH (09:00)
[2018-02-19] MEDS: HYDROXYCHLOROQUINE SULFATE 200MG TABLET PO SCH (10:32)
[2018-02-19] MEDS: DOCUSATE SODIUM SUGAR FREE 100MG/10ML UDC NG SCH ×2 (10:32→17:00)
[2018-02-19] MEDS: LEVETIRACETAM 500 MG in SODIUM CHLORIDE 0.9% 100 ML IV SCH ×2 (10:33→20:49)
[2018-02-19] MEDS: AMLODIPINE 5MG TABLET NG SCH (20:49)
[2018-02-19] MEDS: ATORVASTATIN CALCIUM 40MG TABLET PO SCH (20:49)
[2018-02-19] MEDS: POLYETHYLENE GLYCOL 3350 (17GM) 1 DOSE PACK PO SCH (20:49)
[2018-02-20 00:08] VITALS: BP 107/77
[2018-02-20] MEDS: IPRATROPIUM/ALBUTEROL 0.5-3(2.5)MG/3ML NEB HHN SCH ×2 (01:40→07:55)
[2018-02-20 04:00] VITALS: BP 116/89
[2018-02-20] MEDS: DEXAMETHASONE 4MG/ML 1ML VIAL IV SCH (05:34)
[2018-02-20] MEDS: BLOOD SUGAR DIAGNOSTIC STRIP TEST SCH (05:56)
[2018-02-20] MEDS: INSULIN LISPRO 100 UNITS/ML SUBCUT SCH (05:56)
[2018-02-20 08:00] VITALS: BP 125/89
[2018-02-20] MEDS: LEVETIRACETAM 500 MG in SODIUM CHLORIDE 0.9% 100 ML IV SCH (09:54)
[2018-02-20 09:55] VITALS: BP 125/89
[2018-02-20 11:40] VITALS: BP 116/84
== END 2018-02-20 11:58 | DRG 23 ==
LOC: ER 20:56 → 7WST 02-06 01:51 → ENRESERV 02-06 02:16 → 5EST 02-07 21:08 → MICUSO 02-08 17:52 → 7WST 02-14 16:38
PROVIDERS: ADMIT Internal Medicine Nephrology; ATTEND Internal Medicine Nephrology
PROC: 00U207Z Supplement Dura Mater with Autologous Tissue Substitute, Open Approach (ICD-10-PCS; 2018-02-08)
PROC: 009600Z Drainage of Cerebral Ventricle with Drainage Device, Open Approach (ICD-10-PCS; 2018-02-08)
PROC: 0NU007Z Supplement Skull with Autologous Tissue Substitute, Open Approach (ICD-10-PCS; 2018-02-08)
PROC: 00C70ZZ Extirpation of Matter from Cerebral Hemisphere, Open Approach (ICD-10-PCS; 2018-02-08)
PROC: 30233L1 Transfusion of Nonautologous Fresh Plasma into Peripheral Vein, Percutaneous Approach (ICD-10-PCS; 2018-02-08)
PROC: 30233R1 Transfusion of Nonautologous Platelets into Peripheral Vein, Percutaneous Approach (ICD-10-PCS; 2018-02-08)
PROC: 30233K1 Transfusion of Nonautologous Frozen Plasma into Peripheral Vein, Percutaneous Approach (ICD-10-PCS; 2018-02-08)
PROC: 5A1945Z Respiratory Ventilation, 24-96 Consecutive Hours (ICD-10-PCS; principal; 2018-02-09)
PROC: 0BH17EZ Insertion of Endotracheal Airway into Trachea, Via Natural or Artificial Opening (ICD-10-PCS; 2018-02-09)
PROC: 4A00X4Z Measurement of Central Nervous Electrical Activity, External Approach (ICD-10-PCS; 2018-02-09)
PROC: 05H933Z Insertion of Infusion Device into Right Brachial Vein, Percutaneous Approach (ICD-10-PCS; 2018-02-09)
PROC: B54MZZA Ultrasonography of Right Upper Extremity Veins, Guidance (ICD-10-PCS; 2018-02-09)
DX: I63.532 Cerebral infarction due to unspecified occlusion or stenosis of left posterior cerebral artery (principal); J96.00 Acute respiratory failure, unspecified whether with hypoxia or hypercapnia; I62.00 Nontraumatic subdural hemorrhage, unspecified; G81.91 Hemiplegia, unspecified affecting right dominant side; R41.4 Neurologic neglect syndrome; E44.1 Mild protein-calorie malnutrition; G93.40 Encephalopathy, unspecified; M87.9 Osteonecrosis, unspecified; J98.11 Atelectasis; R47.01 Aphasia; H53.461 Homonymous bilateral field defects, right side; M32.9 Systemic lupus erythematosus, unspecified; D72.819 Decreased white blood cell count, unspecified; E11.9 Type 2 diabetes mellitus without complications; E53.8 Deficiency of other specified B group vitamins; E78.00 Pure hypercholesterolemia, unspecified; I11.9 Hypertensive heart disease without heart failure; E78.5 Hyperlipidemia, unspecified; R13.10 Dysphagia, unspecified; R47.1 Dysarthria and anarthria; X58.XXXA Exposure to other specified factors, initial encounter; R00.1 Bradycardia, unspecified; R26.9 Unspecified abnormalities of gait and mobility; Z96.641 Presence of right artificial hip joint; M19.90 Unspecified osteoarthritis, unspecified site; R32 Unspecified urinary incontinence; Z78.1 Physical restraint status; Z90.49 Acquired absence of other specified parts of digestive tract; Z98.51 Tubal ligation status; Z88.5 Allergy status to narcotic agent; Y93.89 Activity, other specified; Y92.89 Other specified places as the place of occurrence of the external cause; Y99.8 Other external cause status; Z68.29 Body mass index [BMI] 29.0-29.9, adult
CPT/HCPCS: 36415; 36569; 36600; 70544; 70553; 71045; 76937; 80048; 80061; 80305; 82140; 82375; 82550; 82553; 82607; 82746; 82805; 82962; 83036; 83735; 83880; 84100; 84439; 84443; 84478; 84481; 84484; 86038; 86160; 86850; 86900; 86927; 88304; 92523; 92610; 93005; 93306; 93880; 93970; 94003; 94640; 96361; 96374; 97110; 97112; 97162; 97164; 97167; 97168; 97530; 97535; 99285; A4216; C1713; C1725; C1769; C9113; G0482; J0690; J1100; J1650; J1815; J1953; J2250; J2270; J2405; J2704; J2720; J3010; J3420; J3490; J7030; J7040; J7050; J7120; J7121; J7620; P9017; P9034

== ENCOUNTER → 2018-04-07 | Outpatient (CLI) | payer MEDICARE, MEDICAID ==
[~2018-04-07] MED LIST: ALEN70TA46 MT; CALC1TAB99 PO; ERGO2000 PO; FERR325T6 MT; HYDR200T35 PO
== END | disposition home or self-care (01) ==
LOC: MRI 12:54
PROVIDERS: ATTEND Psychiatry & Neurology Neurology
DX: I63.512 Cerebral infarction due to unspecified occlusion or stenosis of left middle cerebral artery (principal); G31.89 Other specified degenerative diseases of nervous system
CPT/HCPCS: 70551

== ENCOUNTER 2018-04-20 10:44 | Inpatient (IN) | payer MEDICARE, MEDICAID ==
[~2018-04-20] VITALS: Ht 157.5 cm; Wt 65.8 kg
[2018-04-20] MEDS ORDERED: SODIUM CHLORIDE 0.9% 1,000 ML IV ONE (11:18)
[2018-04-20] MEDS ORDERED: LEVETIRACETAM 1000MG/100ML 100 ML IV ONE (11:30)
[2018-04-20 12:55] LABS: HEMATOCRIT. 37.8 % (36.0-48.0); HEMOGLOBIN. 12.6 g/dL (12.0-16.0); MEAN CORPUSCULAR HEMOGLOBIN 32.6 pg (28.0-32.0); MEAN CORPUSCULAR VOLUME 97.8 fL (81.0-99.0); MEAN PLATELET VOLUME 7.1 fl (7.4-10.4); PLATELET 200 x1000/uL (130-400); RED BLOOD CELL COUNT 3.87 mill/uL (4.2-5.4); RED CELL DISTRIBUTION WIDTH 15.1 % (11.6-14.6)
[2018-04-20 13:01] LABS: CHLORIDE 100 mEq/L (98-107)
[2018-04-20 13:04] LABS: INR 1.1; PROTHROMBIN TIME 11.2 sec (9.1-11.1)
[2018-04-20 13:05] LABS: ETHANOL BLOOD < 10 mg/dL
[2018-04-20 14:25] LABS: PLATELET ESTIMATE NORMAL
[2018-04-20 14:31] LABS: CLARITY URINE CLEAR (CLEAR); COLOR URINE YELLOW (YELLOW); KETONES URINE NEGATIVE (NEGATIVE); LEUKOCYTE ESTERASE URINE NEGATIVE (NEGATIVE); NITRITE URINE NEGATIVE (NEGATIVE); OCCULT BLOOD URINE TRACE (NEGATIVE); PH URINE 7.5 (4.5-8.0); PROTEIN URINE NEGATIVE (NEGATIVE); SPECIFIC GRAVITY URINE 1.003 (1.005-1.030); UROBILINOGEN URINE 0.2 E.U./dL (0.2-1.0)
[2018-04-20 14:48] LABS: *AMPHETAMINES SCREEN URINE NEGATIVE (NEGATIVE); *BARBITURATES SCREEN URINE NEGATIVE (NEGATIVE); *BENZODIAZEPINES SCREEN URINE NEGATIVE (NEGATIVE); *COCAINE SCREEN URINE NEGATIVE (NEGATIVE)
[2018-04-20 14:49] LABS: CANNABINOID URINE SCREEN NEGATIVE (NEGATIVE); METHADONE URINE SCREEN NEGATIVE (NEGATIVE); OPIATES URINE SCREEN NEGATIVE (NEGATIVE); PHENCYCLIDINE URINE SCREEN NEGATIVE (NEGATIVE)
[2018-04-20 17:30] VITALS: BP 124/85
[2018-04-20 20:00] VITALS: BP 118/94
[2018-04-20] MEDS ORDERED: ENOXAPARIN 40MG/0.4ML SYR SUBCUT SCH (20:00)
[2018-04-20 20:30] VITALS: BP 118/94
[2018-04-20] MEDS ORDERED: CLON0.1T PO (22:39)
[2018-04-20] MEDS ORDERED: FLEET ENEMA PR (22:39)
[2018-04-20] MEDS ORDERED: POLY17PO3 MT (22:39)
[2018-04-20] MEDS ORDERED: ACET-2853 PO (22:39)
[2018-04-20] MEDS ORDERED: LIP40 PO (22:39)
[2018-04-20] MEDS ORDERED: DEXA4TAB PO (22:39)
[2018-04-20] MEDS ORDERED: MOM PO (22:39)
[2018-04-20] MEDS ORDERED: BISA10SU62 RC (22:39)
[2018-04-20] MEDS ORDERED: DOCU-150 PO (22:39)
[2018-04-20] MEDS ORDERED: CYANOCOBALAMIN IM (22:39)
[2018-04-20] MEDS ORDERED: AMLO5TAB88 PO (22:39)
[2018-04-20] MEDS ORDERED: CLONIDINE 0.1MG TABLET PO PRN (22:45)
[2018-04-20] MEDS ORDERED: MAGNESIUM HYDROXIDE 400MG/5ML 30ML UDC PO PRN (22:45)
[2018-04-20] MEDS ORDERED: FLEET ENEMA PR PRN (22:45)
[2018-04-20] MEDS ORDERED: ACETAMINOPHEN 650 MG PO PRN (22:45)
[2018-04-20] MEDS ORDERED: BISACODYL 10 MG RC PRN (22:45)
[2018-04-20] MEDS ORDERED: ACETAMINOPHEN 325MG TABLET PO PRN (23:30)
[2018-04-20] MEDS ORDERED: NA PHOS,M-B/NA PHOS,DI-BA ENEMA 118ML PR PRN (23:45)
[2018-04-20] MEDS ORDERED: BISACODYL 10MG SUPP PR PRN (23:45)
[2018-04-21] VITALS (8 sets, daily range): BP systolic 101–140; BP diastolic 68–90
[2018-04-21] MEDS ORDERED: MEDICATION NOT ON FORMULARY EA (Docusate Sodium 100 MG) PO SCH (09:00)
[2018-04-21] MEDS ORDERED: MEDICATION NOT ON FORMULARY EA (Amlodipine Besylate 5 MG) PO SCH (09:00)
[2018-04-21] MEDS ORDERED: MEDICATION NOT ON FORMULARY EA (Hydroxychloroquine Sulfate 200 MG) PO SCH (09:00)
[2018-04-21] MEDS: AMLODIPINE 5MG TABLET PO SCH ×2 (09:26→09:29)
[2018-04-21] MEDS: DEXAMETHASONE 4MG TABLET PO SCH ×2 (09:26→15:01)
[2018-04-21] MEDS: DOCUSATE SODIUM 100MG CAPSULE PO SCH ×2 (09:27→18:00)
[2018-04-21] MEDS: HYDROXYCHLOROQUINE SULFATE 200MG TABLET PO SCH (09:27)
[2018-04-21] MEDS: ENOXAPARIN 80MG/0.8ML SYR SUBCUT SCH (15:03)
[2018-04-21] MEDS: ATORVASTATIN CALCIUM 40MG TABLET PO SCH (20:27)
[2018-04-21] MEDS: POLYETHYLENE GLYCOL 3350 (17GM) 1 DOSE PACK PO SCH (20:27)
[2018-04-21] MEDS: LEVETIRACETAM 500MG TABLET PO SCH (20:28)
[2018-04-21] MEDS ORDERED: POLYETHYLENE GLYCOL MT SCH (21:00)
[2018-04-22] VITALS: BP 100/72
[2018-04-22 04:00] VITALS: BP 114/86
[2018-04-22] MEDS: ENOXAPARIN 80MG/0.8ML SYR SUBCUT SCH (05:59)
[2018-04-22] MEDS: LORAZEPAM 2MG/ML CPJ IV PRN (07:29)
[2018-04-22] MEDS: HYDROXYCHLOROQUINE SULFATE 200MG TABLET PO SCH (09:00)
[2018-04-22] MEDS: AMLODIPINE 5MG TABLET PO SCH (09:00)
[2018-04-22] MEDS: DOCUSATE SODIUM 100MG CAPSULE PO SCH ×2 (09:00→17:52)
[2018-04-22] MEDS: LEVETIRACETAM 500MG TABLET PO SCH ×2 (09:00→20:33)
[2018-04-22 09:55] VITALS: BP 116/77
[2018-04-22 12:30] VITALS: BP 116/86
[2018-04-22 16:49] LABS: HEMATOCRIT. 42.2 % (36.0-48.0); HEMOGLOBIN. 14.2 g/dL (12.0-16.0); MEAN CORPUSCULAR HEMOGLOBIN 32.9 pg (28.0-32.0); MEAN CORPUSCULAR VOLUME 97.3 fL (81.0-99.0); MEAN PLATELET VOLUME 7.1 fl (7.4-10.4); PLATELET 252 x1000/uL (130-400); RED BLOOD CELL COUNT 4.33 mill/uL (4.2-5.4); RED CELL DISTRIBUTION WIDTH 15.3 % (11.6-14.6)
[2018-04-22 16:54] VITALS: BP 107/87
[2018-04-22 17:01] LABS: CHLORIDE 103 mEq/L (98-107)
[2018-04-22 17:06] LABS: PLATELET ESTIMATE NORMAL
[2018-04-22] MEDS: SODIUM CHLORIDE 0.9% 1,000 ML IV SCH (18:02)
[2018-04-22 20:00] VITALS: BP 109/75
[2018-04-22] MEDS ORDERED: CEFTRIAXONE 1,000 MG in DEXTROSE 5% WATER 50 ML IV SCH (20:00)
[2018-04-22] MEDS: ATORVASTATIN CALCIUM 40MG TABLET PO SCH (20:33)
[2018-04-22] MEDS: POLYETHYLENE GLYCOL 3350 (17GM) 1 DOSE PACK PO SCH (21:18)
[2018-04-22] MEDS: CEFTRIAXONE 1 G PREMIX 50 ML IV SCH (22:00)
[2018-04-23] VITALS (12 sets, daily range): BP systolic 106–136; BP diastolic 62–91
[2018-04-23] MEDS: LORAZEPAM 2MG/ML CPJ IV PRN ×2 (01:46→21:08)
[2018-04-23 07:49] LABS: HEMATOCRIT. 39.6 % (36.0-48.0); HEMOGLOBIN. 13.5 g/dL (12.0-16.0); MEAN CORPUSCULAR HEMOGLOBIN 33.1 pg (28.0-32.0); MEAN CORPUSCULAR VOLUME 97.1 fL (81.0-99.0); PLATELET 241 x1000/uL (130-400); RED BLOOD CELL COUNT 4.08 mill/uL (4.2-5.4); RED CELL DISTRIBUTION WIDTH 15.7 % (11.6-14.6)
[2018-04-23 07:59] LABS: D-DIMER 5.8 mg/L FEU (<0.50); PARTIAL THROMBOPLASTIN TIME 25.4 sec (23.4-31.0)
[2018-04-23 08:03] LABS: CHLORIDE 102 mEq/L (98-107)
[2018-04-23] MEDS ORDERED: LORAZEPAM 2MG/ML CPJ IV SCH (08:15)
[2018-04-23] MEDS: LEVETIRACETAM 500MG TABLET PO SCH ×2 (09:00→20:57)
[2018-04-23] MEDS: HYDROXYCHLOROQUINE SULFATE 200MG TABLET PO SCH (09:00)
[2018-04-23] MEDS ORDERED: CYANOCOBALAMIN 1000 MCG IM SCH (09:00)
[2018-04-23] MEDS ORDERED: CYANOCOBALAMIN 1000MCG/ML VIAL INJ SCH (09:00)
[2018-04-23] MEDS: AMLODIPINE 5MG TABLET PO SCH (09:00)
[2018-04-23] MEDS: DOCUSATE SODIUM 100MG CAPSULE PO SCH ×2 (09:00→17:36)
[2018-04-23] MEDS: SODIUM CHLORIDE 0.9% 1,000 ML IV SCH (11:07)
[2018-04-23] MEDS ORDERED: LIDOCAINE HCL 1% 20ML VIAL (Pyxis) INJ ONE (11:29)
[2018-04-23] MEDS ORDERED: SODIUM BICARBONATE 4% (2.4MEQ) 5ML VIAL IV ONE (11:29)
[2018-04-23] MEDS ORDERED: IOHEXOL-300 50 ML BOTTLE IV ONE (11:29)
[2018-04-23] MEDS ORDERED: IOHEXOL-300 100 ML BOTTLE ONE (11:30)
[2018-04-23 12:13] LABS: PLATELET ESTIMATE NORMAL
[2018-04-23] MEDS: ATORVASTATIN CALCIUM 40MG TABLET PO SCH (20:57)
[2018-04-23] MEDS: POLYETHYLENE GLYCOL 3350 (17GM) 1 DOSE PACK PO SCH (20:57)
[2018-04-23] MEDS: CEFTRIAXONE 1 G PREMIX 50 ML IV SCH (21:08)
[2018-04-24] VITALS: BP 99/63
[2018-04-24] MEDS: SODIUM CHLORIDE 0.9% 1,000 ML IV SCH ×2 (03:12→20:37)
[2018-04-24 04:00] VITALS: BP 120/80
[2018-04-24] MEDS: LORAZEPAM 2MG/ML CPJ IV PRN (04:33)
[2018-04-24 08:03] VITALS: BP 116/90
[2018-04-24] MEDS: DOCUSATE SODIUM 100MG CAPSULE PO SCH ×2 (08:45→17:00)
[2018-04-24] MEDS: LEVETIRACETAM 500MG TABLET PO SCH ×2 (08:45→20:38)
[2018-04-24] MEDS: AMLODIPINE 5MG TABLET PO SCH (08:45)
[2018-04-24] MEDS: HYDROXYCHLOROQUINE SULFATE 200MG TABLET PO SCH (08:45)
[2018-04-24 09:10] LABS: G6PD RBC 4.09 x10E6/uL (3.77-5.28)
[2018-04-24 12:09] VITALS: BP 102/74
[2018-04-24 15:56] VITALS: BP 103/74
[2018-04-24 19:06] LABS: ANTI-DNA DOUBLE STRANDED QUANT < 1 IU/mL (0-9)
[2018-04-24 20:00] VITALS: BP 100/76
[2018-04-24] MEDS: ATORVASTATIN CALCIUM 40MG TABLET PO SCH (20:38)
[2018-04-24] MEDS: POLYETHYLENE GLYCOL 3350 (17GM) 1 DOSE PACK PO SCH (20:38)
[2018-04-24] MEDS: CEFTRIAXONE 1 G PREMIX 50 ML IV SCH (21:02)
[2018-04-25] VITALS (7 sets, daily range): BP systolic 92–103; BP diastolic 69–78
[2018-04-25] MEDS: LORAZEPAM 2MG/ML CPJ IV PRN ×3 (02:02→22:25)
[2018-04-25 04:16] LABS: COMPLEMENT C3 157 mg/dL (82-167)
[2018-04-25 09:06] LABS: G6PD QUANTITATIVE 321 (146-376)
[2018-04-25] MEDS: LEVETIRACETAM 500MG TABLET PO SCH ×2 (11:22→22:24)
[2018-04-25] MEDS: AMLODIPINE 5MG TABLET PO SCH (11:22)
[2018-04-25] MEDS: DOCUSATE SODIUM 100MG CAPSULE PO SCH ×2 (11:22→16:04)
[2018-04-25] MEDS: HYDROXYCHLOROQUINE SULFATE 200MG TABLET PO SCH (11:23)
[2018-04-25] MEDS: SODIUM CHLORIDE 0.9% 1,000 ML IV SCH (16:01)
[2018-04-25 17:10] LABS: RNP ANTIBODY < 0.2 AI (0.0-0.9); SMITH ANTIBODY < 0.2 AI (0.0-0.9)
[2018-04-25] MEDS: CEFTRIAXONE 1 G PREMIX 50 ML IV SCH (22:24)
[2018-04-25] MEDS: ATORVASTATIN CALCIUM 40MG TABLET PO SCH (22:24)
[2018-04-25] MEDS: POLYETHYLENE GLYCOL 3350 (17GM) 1 DOSE PACK PO SCH (22:25)
[2018-04-26 04:00] VITALS: BP 113/79
[2018-04-26] MEDS: LORAZEPAM 2MG/ML CPJ IV PRN ×2 (05:19→20:38)
[2018-04-26 08:00] VITALS: BP 106/64
[2018-04-26] MEDS: AMLODIPINE 5MG TABLET PO SCH (09:00)
[2018-04-26] MEDS: LEVETIRACETAM 500MG TABLET PO SCH ×2 (10:03→20:38)
[2018-04-26] MEDS: HYDROXYCHLOROQUINE SULFATE 200MG TABLET PO SCH (10:03)
[2018-04-26] MEDS: DOCUSATE SODIUM 100MG CAPSULE PO SCH (10:03)
[2018-04-26 12:00] VITALS: BP 91/71
[2018-04-26 16:00] VITALS: BP 106/78
[2018-04-26 17:09] LABS: ANTI-CARDIOLIPIN AB IGA < 9 APL U/mL (0-11); ANTI-CARDIOLIPIN AB IGG < 9 GPL U/mL (0-14); ANTI-CARDIOLIPIN AB IGM 10 MPL U/mL (0-12)
[2018-04-26 17:24] LABS: BASOPHILS % 0.8 % (0.0-2.0); EOSINOPHILS % 0.8 % (0.0-5.0); HEMATOCRIT. 36.1 % (36.0-48.0); HEMOGLOBIN. 12.1 g/dL (12.0-16.0); LYMPHOCYTES % 24.5 % (20.0-50.0); MEAN CORPUSCULAR HEMOGLOBIN 32.8 pg (28.0-32.0); MEAN CORPUSCULAR VOLUME 97.9 fL (81.0-99.0); MEAN PLATELET VOLUME 7.8 fl (7.4-10.4); MONOCYTES % 9.6 % (2.0-8.0); NEUTROPHILS % 64.3 % (40.0-76.0); PLATELET 172 x1000/uL (130-400); RED BLOOD CELL COUNT 3.68 mill/uL (4.2-5.4); RED CELL DISTRIBUTION WIDTH 15.2 % (11.6-14.6)
[2018-04-26 17:27] LABS: CHLORIDE 108 mEq/L (98-107)
[2018-04-26] MEDS: ENOXAPARIN 80MG/0.8ML SYR SUBCUT SCH (17:53)
[2018-04-26] MEDS ORDERED: DOCUSATE SODIUM SUGAR FREE 100MG/10ML UDC NG SCH (18:00)
[2018-04-26] MEDS: DOCUSATE SODIUM SUGAR FREE 100MG/10ML UDC PO SCH (18:24)
[2018-04-26 20:00] VITALS: BP 108/86
[2018-04-26] MEDS: POLYETHYLENE GLYCOL 3350 (17GM) 1 DOSE PACK PO SCH ×2 (20:38→20:39)
[2018-04-26] MEDS: ATORVASTATIN CALCIUM 40MG TABLET PO SCH (20:38)
[2018-04-27 00:02] VITALS: BP 105/89
[2018-04-27] MEDS: LORAZEPAM 2MG/ML CPJ IV PRN (05:15)
[2018-04-27] MEDS: ENOXAPARIN 80MG/0.8ML SYR SUBCUT SCH (05:15)
[2018-04-27 08:00] VITALS: BP 112/80
[2018-04-27 09:13] LABS: DRVVT LA 34.4 sec (0.0-47.0); PTT-LA 31.8 sec (0.0-51.9)
[2018-04-27] MEDS: HYDROXYCHLOROQUINE SULFATE 200MG TABLET PO SCH (09:34)
[2018-04-27] MEDS: DOCUSATE SODIUM SUGAR FREE 100MG/10ML UDC PO SCH (09:34)
[2018-04-27] MEDS: LEVETIRACETAM 500MG TABLET PO SCH (09:34)
[2018-04-27] MEDS: AMLODIPINE 5MG TABLET PO SCH (09:34)
[2018-04-27 09:51] LABS: BASOPHILS % 0.8 % (0.0-2.0); EOSINOPHILS % 0.7 % (0.0-5.0); HEMATOCRIT. 35.8 % (36.0-48.0); LYMPHOCYTES % 27.3 % (20.0-50.0); MEAN CORPUSCULAR HEMOGLOBIN 32.8 pg (28.0-32.0); MEAN CORPUSCULAR VOLUME 97.5 fL (81.0-99.0); MEAN PLATELET VOLUME 7.7 fl (7.4-10.4); MONOCYTES % 7.7 % (2.0-8.0); NEUTROPHILS % 63.5 % (40.0-76.0); PLATELET 180 x1000/uL (130-400); RED BLOOD CELL COUNT 3.67 mill/uL (4.2-5.4); RED CELL DISTRIBUTION WIDTH 15.3 % (11.6-14.6)
[2018-04-27 10:06] LABS: ANA IFA Negative (.); LUPUS ANTICOAG INTERPRETATION Comment: (.)
[2018-04-27 10:24] LABS: CHLORIDE 110 mEq/L (98-107)
[2018-04-27 12:00] VITALS: BP 104/74
[2018-04-27 13:09] LABS: ANTI-MYELOPEROXIDASE AB < 9.0 U/mL (0.0-9.0); ANTI-PROTEINASE 3 ABS < 3.5 U/mL (0.0-3.5)
[2018-04-27 15:06] LABS: ATYPICAL P-ANCA <1:20 titer (Neg:<1:20); CYTOPLASMIC C-ANCA <1:20 titer (Neg:<1:20); PERINUCLEAR P-ANCA <1:20 titer (Neg:<1:20)
== END 2018-04-27 19:05 | disposition short-term general hospital (02) | DRG 40 ==
LOC: ER 10:44 → 6WST 15:12 → EDBEDREQ 15:16 → ENRESERV 16:15 → 6WST 18:27
PROVIDERS: ADMIT Internal Medicine Nephrology; ATTEND Internal Medicine Nephrology
PROC: 06H03DZ Insertion of Intraluminal Device into Inferior Vena Cava, Percutaneous Approach (ICD-10-PCS; principal; 2018-04-23)
DX: I63.9 Cerebral infarction, unspecified (principal); G93.41 Metabolic encephalopathy; G40.89 Other seizures; N39.0 Urinary tract infection, site not specified; I82.411 Acute embolism and thrombosis of right femoral vein; I11.0 Hypertensive heart disease with heart failure; L89.90 Pressure ulcer of unspecified site, unspecified stage; M32.9 Systemic lupus erythematosus, unspecified; E78.00 Pure hypercholesterolemia, unspecified; E11.9 Type 2 diabetes mellitus without complications; F03.90 Unspecified dementia, unspecified severity, without behavioral disturbance, psychotic disturbance, mood disturbance, and anxiety; I50.9 Heart failure, unspecified; Z88.5 Allergy status to narcotic agent; Z90.49 Acquired absence of other specified parts of digestive tract; Z98.51 Tubal ligation status
CPT/HCPCS: 36415; 37191; 70551; 71045; 80048; 80305; 82955; 83520; 83605; 84484; 84550; 85041; 85379; 85613; 85651; 85732; 86140; 86147; 86160; 86225; 86235; 86256; 86592; 86780; 92610; 93880; 93970; 97163; 99285; C1725; C1769; C1880; C1893; G0482; J0696; J1644; J1650; J1953; J2060; J3490; J7030; J7050; J7060; J8540; Q9967

== ENCOUNTER 2018-05-18 14:16 | Inpatient (IN) | payer MEDICARE, MEDICAID ==
[~2018-05-18] VITALS: Ht 162.6 cm; Wt 69.4 kg
[2018-05-18] MEDS ORDERED: SODIUM CHLORIDE 0.9% 1000ML BAG (SEPSIS BOLUS) IV ONE (14:45)
[2018-05-18 15:37] LABS: CHLORIDE 105 mEq/L (98-107)
[2018-05-18 15:38] LABS: BASOPHILS % 0.9 % (0.0-2.0); EOSINOPHILS % 0.3 % (0.0-5.0); HEMATOCRIT. 30.6 % (36.0-48.0); HEMOGLOBIN. 10.2 g/dL (12.0-16.0); LYMPHOCYTES % 18.6 % (20.0-50.0); MEAN CORPUSCULAR HEMOGLOBIN 33.1 pg (28.0-32.0); MEAN CORPUSCULAR VOLUME 98.7 fL (81.0-99.0); MEAN PLATELET VOLUME 7.5 fl (7.4-10.4); MONOCYTES % 9.6 % (2.0-8.0); NEUTROPHILS % 70.6 % (40.0-76.0); PLATELET 216 x1000/uL (130-400); RED CELL DISTRIBUTION WIDTH 16.1 % (11.6-14.6)
[2018-05-18 15:41] LABS: ETHANOL BLOOD < 10 mg/dL
[2018-05-18 15:56] LABS: D-DIMER 4.95 mg/L FEU (<0.50); PROTHROMBIN TIME 10.4 sec (9.1-11.1)
[2018-05-18] MEDS ORDERED: VANCOMYCIN 1 G PREMIX 200 ML IV ONE (16:45)
[2018-05-18] MEDS ORDERED: PIPERACILLIN/TAZ 3.375G PREMIX 50 ML IV ONE (16:45)
[2018-05-18 18:39] LABS: CLARITY URINE CLEAR (CLEAR); COLOR URINE YELLOW (YELLOW); KETONES URINE NEGATIVE (NEGATIVE); LEUKOCYTE ESTERASE URINE 1+ (NEGATIVE); NITRITE URINE NEGATIVE (NEGATIVE); OCCULT BLOOD URINE NEGATIVE (NEGATIVE); PH URINE 7.5 (4.5-8.0); PROTEIN URINE NEGATIVE (NEGATIVE); SPECIFIC GRAVITY URINE 1.008 (1.005-1.030)
[2018-05-18 19:02] LABS: *AMPHETAMINES SCREEN URINE NEGATIVE (NEGATIVE); *BARBITURATES SCREEN URINE NEGATIVE (NEGATIVE)
[2018-05-18 19:03] LABS: *BENZODIAZEPINES SCREEN URINE NEGATIVE (NEGATIVE); *COCAINE SCREEN URINE NEGATIVE (NEGATIVE); CANNABINOID URINE SCREEN NEGATIVE (NEGATIVE); METHADONE URINE SCREEN NEGATIVE (NEGATIVE); OPIATES URINE SCREEN NEGATIVE (NEGATIVE); PHENCYCLIDINE URINE SCREEN NEGATIVE (NEGATIVE)
[2018-05-18] MEDS ORDERED: LORAZEPAM 2MG/ML CPJ IV ONE (20:15)
[2018-05-18] MEDS: DEXT 5%/0.45% NACL 1000ML 1,000 ML IV SCH (20:44)
[2018-05-18] MEDS ORDERED: ACETAMINOPHEN 650MG/20.3ML UDC GT PRN (20:45)
[2018-05-18] MEDS ORDERED: CLONIDINE 0.1MG TABLET PO PRN (20:45)
[2018-05-18] MEDS ORDERED: ACETAMINOPHEN 325MG TABLET PO PRN (20:45)
[2018-05-18] MEDS ORDERED: ONDANSETRON HCL 4MG/2ML INJ IV PRN (20:45)
[2018-05-18] MEDS ORDERED: QUETIAPINE FUMARATE 25MG TABLET PO SCH (21:00)
[2018-05-18] MEDS ORDERED: LORAZEPAM 2MG/ML CPJ IM ONE (22:00)
[2018-05-18 23:51] LABS: HEMATOCRIT. 31.8 % (36.0-48.0); HEMOGLOBIN. 10.5 g/dL (12.0-16.0); MEAN CORPUSCULAR HEMOGLOBIN 33.2 pg (28.0-32.0); MEAN CORPUSCULAR VOLUME 100.3 fL (81.0-99.0); MEAN PLATELET VOLUME 7.5 fl (7.4-10.4); PLATELET 212 x1000/uL (130-400); RED BLOOD CELL COUNT 3.17 mill/uL (4.2-5.4); RED CELL DISTRIBUTION WIDTH 16.3 % (11.6-14.6)
[2018-05-18 23:53] LABS: CHLORIDE 105 mEq/L (98-107)
[2018-05-19 00:21] LABS: ATYPICAL LYMPHOCYTES 1; PLATELET ESTIMATE NORMAL
[2018-05-19] MEDS: LORAZEPAM 2MG/ML CPJ IV PRN ×2 (04:22→07:45)
[2018-05-19 09:00] VITALS: BP 110/70
[2018-05-19 12:00] VITALS: BP 106/59
[2018-05-19] MEDS ORDERED: CLON-457 PO (12:32)
[2018-05-19] MEDS ORDERED: DEXA1TAB PO (12:32)
[2018-05-19] MEDS ORDERED: LEVE500T19 MT (12:32)
[2018-05-19] MEDS ORDERED: CYAN100086 PO (12:32)
[2018-05-19] MEDS ORDERED: HYDR200T80 MT (12:32)
[2018-05-19] MEDS ORDERED: AMLO5TAB88 MT (12:32)
[2018-05-19] MEDS ORDERED: LIP40 MT (12:32)
[2018-05-19] MEDS ORDERED: DOCU-150 MT (12:32)
[2018-05-19] MEDS: ARIPIPRAZOLE 2MG TABLET PO SCH (14:01)
[2018-05-19] MEDS: MYCOPHENOLATE MOFETIL 250MG CAPSULE PO SCH ×2 (14:01→20:41)
[2018-05-19] MEDS: PREDNISONE 5MG TABLET PO SCH (14:02)
[2018-05-19] MEDS: QUETIAPINE FUMARATE 25MG TABLET PO SCH ×2 (14:02→20:41)
[2018-05-19] MEDS: ENOXAPARIN 40MG/0.4ML SYR SUBCUT SCH (14:03)
[2018-05-19 16:00] VITALS: BP 101/69
[2018-05-19 20:00] VITALS: BP 115/67
[2018-05-19] MEDS: DEXT 5%/0.45% NACL 1000ML 1,000 ML IV SCH (20:40)
[2018-05-19] MEDS ORDERED: DIAZEPAM 2 MG TABLET PO SCH (21:00)
[2018-05-20] VITALS: BP 92/66
[2018-05-20 04:00] VITALS: BP 104/66
[2018-05-20] MEDS: ARIPIPRAZOLE 2MG TABLET PO SCH (06:24)
[2018-05-20] MEDS: ENOXAPARIN 40MG/0.4ML SYR SUBCUT SCH (09:00)
[2018-05-20] MEDS ORDERED: QUETIAPINE FUMARATE 50MG TABLET PO SCH (09:00)
[2018-05-20] MEDS: PREDNISONE 5MG TABLET PO SCH (09:00)
[2018-05-20] MEDS: MYCOPHENOLATE MOFETIL 250MG CAPSULE PO SCH ×2 (09:00→20:30)
[2018-05-20 10:15] VITALS: BP 102/78
[2018-05-20 12:00] VITALS: BP 127/82
[2018-05-20] MEDS: LORAZEPAM 2MG/ML CPJ IV PRN (15:53)
[2018-05-20 16:00] VITALS: BP 130/71
[2018-05-20 20:00] VITALS: BP 122/73
[2018-05-20] MEDS: DIAZEPAM 2 MG TABLET PO SCH (20:30)
[2018-05-20] MEDS ORDERED: QUETIAPINE FUMARATE 25MG TABLET PO SCH (21:00)
[2018-05-21] VITALS: BP 125/79
[2018-05-21] MEDS: HALOPERIDOL LACTATE 5MG/ML VIAL IM PRN ×2 (01:42→20:33)
[2018-05-21 04:00] VITALS: BP 117/85
[2018-05-21 08:00] VITALS: BP 107/73
[2018-05-21] MEDS ORDERED: ARIPIPRAZOLE 2MG TABLET PO SCH (09:00)
[2018-05-21] MEDS: MYCOPHENOLATE MOFETIL 250MG CAPSULE PO SCH ×2 (09:03→20:28)
[2018-05-21] MEDS: QUETIAPINE FUMARATE 50MG TABLET PO SCH ×2 (09:03→17:07)
[2018-05-21] MEDS: PREDNISONE 5MG TABLET PO SCH (09:03)
[2018-05-21] MEDS: ENOXAPARIN 40MG/0.4ML SYR SUBCUT SCH (09:03)
[2018-05-21] MEDS: ARIPIPRAZOLE 5MG TABLET PO SCH ×2 (09:06→17:07)
[2018-05-21 12:00] VITALS: BP 100/63
[2018-05-21 16:00] VITALS: BP 102/71
[2018-05-21 20:00] VITALS: BP 98/60
[2018-05-21] MEDS: DIAZEPAM 2 MG TABLET PO SCH (20:28)
[2018-05-22] VITALS: BP 102/65
[2018-05-22] MEDS: HALOPERIDOL LACTATE 5MG/ML VIAL IM PRN ×3 (04:08→22:57)
[2018-05-22 08:10] VITALS: BP 120/92
[2018-05-22] MEDS: ARIPIPRAZOLE 5MG TABLET PO SCH ×2 (08:46→16:18)
[2018-05-22] MEDS: ENOXAPARIN 40MG/0.4ML SYR SUBCUT SCH (08:47)
[2018-05-22] MEDS: MYCOPHENOLATE MOFETIL 250MG CAPSULE PO SCH ×2 (08:47→20:19)
[2018-05-22] MEDS: PREDNISONE 5MG TABLET PO SCH (08:47)
[2018-05-22] MEDS: QUETIAPINE FUMARATE 25MG TABLET PO SCH ×2 (08:47→16:18)
[2018-05-22 12:00] VITALS: BP 116/80
[2018-05-22 16:00] VITALS: BP 117/84
[2018-05-22 19:55] VITALS: BP 118/86
[2018-05-22] MEDS: DIAZEPAM 2 MG TABLET PO SCH (20:19)
[2018-05-22 23:53] VITALS: BP 112/88
[2018-05-23 06:59] LABS: BASOPHILS % 0.8 % (0.0-2.0); EOSINOPHILS % 2.1 % (0.0-5.0); HEMATOCRIT. 29.7 % (36.0-48.0); HEMOGLOBIN. 9.8 g/dL (12.0-16.0); LYMPHOCYTES % 28.8 % (20.0-50.0); MEAN CORPUSCULAR HEMOGLOBIN 32.5 pg (28.0-32.0); MEAN CORPUSCULAR VOLUME 98.1 fL (81.0-99.0); MEAN PLATELET VOLUME 7.3 fl (7.4-10.4); MONOCYTES % 9.1 % (2.0-8.0); NEUTROPHILS % 59.2 % (40.0-76.0); PLATELET 277 x1000/uL (130-400); RED BLOOD CELL COUNT 3.02 mill/uL (4.2-5.4); RED CELL DISTRIBUTION WIDTH 16.4 % (11.6-14.6)
[2018-05-23 07:10] LABS: CHLORIDE 108 mEq/L (98-107)
[2018-05-23 07:20] LABS: PHOSPHORUS 3.5 mg/dL (2.5-4.9)
[2018-05-23 08:11] VITALS: BP 107/75
[2018-05-23] MEDS: MYCOPHENOLATE MOFETIL 250MG CAPSULE PO SCH ×2 (08:59→21:17)
[2018-05-23] MEDS: QUETIAPINE FUMARATE 25MG TABLET PO SCH ×2 (08:59→16:55)
[2018-05-23] MEDS: ENOXAPARIN 40MG/0.4ML SYR SUBCUT SCH (08:59)
[2018-05-23] MEDS: ARIPIPRAZOLE 5MG TABLET PO SCH ×2 (08:59→16:55)
[2018-05-23] MEDS: PREDNISONE 5MG TABLET PO SCH (08:59)
[2018-05-23 12:00] VITALS: BP 106/76
[2018-05-23 12:45] VITALS: BP 106/76
[2018-05-23] MEDS: LORAZEPAM 2MG/ML CPJ IV PRN (15:49)
[2018-05-23 16:00] VITALS: BP 112/83
[2018-05-23 20:00] VITALS: BP 117/77
[2018-05-23] MEDS: DIAZEPAM 2 MG TABLET PO SCH (21:17)
[2018-05-24] VITALS: BP 114/87
[2018-05-24 04:00] VITALS: BP 154/99
[2018-05-24 08:00] VITALS: BP 108/83
[2018-05-24] MEDS: ARIPIPRAZOLE 5MG TABLET PO SCH ×2 (09:05→17:11)
[2018-05-24] MEDS: PREDNISONE 5MG TABLET PO SCH (09:05)
[2018-05-24] MEDS: MYCOPHENOLATE MOFETIL 250MG CAPSULE PO SCH ×2 (09:05→20:49)
[2018-05-24] MEDS: ENOXAPARIN 40MG/0.4ML SYR SUBCUT SCH (09:05)
[2018-05-24] MEDS: QUETIAPINE FUMARATE 25MG TABLET PO SCH ×2 (09:06→17:11)
[2018-05-24 12:00] VITALS: BP 98/65
[2018-05-24 16:00] VITALS: BP 102/76
[2018-05-24] MEDS ORDERED: SODIUM CHLORIDE 0.45% 1,000 ML IV SCH (16:30)
[2018-05-24 20:00] VITALS: BP 98/74
[2018-05-24] MEDS: DIAZEPAM 2 MG TABLET PO SCH (20:49)
[2018-05-25] VITALS: BP 102/71
[2018-05-25 04:00] VITALS: BP 94/68
[2018-05-25 08:00] VITALS: BP 97/67
[2018-05-25] MEDS: ARIPIPRAZOLE 5MG TABLET PO SCH (09:12)
[2018-05-25] MEDS: PREDNISONE 5MG TABLET PO SCH (09:12)
[2018-05-25] MEDS: MYCOPHENOLATE MOFETIL 250MG CAPSULE PO SCH (09:12)
[2018-05-25] MEDS: ENOXAPARIN 40MG/0.4ML SYR SUBCUT SCH (09:12)
[2018-05-25] MEDS: QUETIAPINE FUMARATE 25MG TABLET PO SCH (09:12)
[2018-05-25 12:00] VITALS: BP 101/66
[2018-05-25 15:24] VITALS: BP 101/77
[2018-05-25 16:00] VITALS: BP 105/66
== END 2018-05-25 17:51 | disposition home or self-care (01) | DRG 546 ==
LOC: ER 14:16 → EDBEDREQ 15:00 → 7WST 16:47 → EDBEDREQ 16:53 → CANRESERV 20:18 → ENRESERV 20:18 → EDBEDREQSVC 22:56 → CANRESERV 23:32 → ENRESERV 23:32 → 7WST 05-19 09:16
PROVIDERS: ADMIT Internal Medicine Nephrology; ATTEND Internal Medicine Nephrology
DX: M32.19 Other organ or system involvement in systemic lupus erythematosus (principal); G93.40 Encephalopathy, unspecified; I50.9 Heart failure, unspecified; M19.90 Unspecified osteoarthritis, unspecified site; I11.0 Hypertensive heart disease with heart failure; E11.9 Type 2 diabetes mellitus without complications; M32.9 Systemic lupus erythematosus, unspecified; Z86.73 Personal history of transient ischemic attack (TIA), and cerebral infarction without residual deficits; Z86.718 Personal history of other venous thrombosis and embolism; Z78.1 Physical restraint status; Z88.5 Allergy status to narcotic agent; Z90.49 Acquired absence of other specified parts of digestive tract; Z98.51 Tubal ligation status
CPT/HCPCS: 36415; 71045; 73070; 73590; 80048; 80305; 82140; 83605; 83735; 83880; 84100; 84145; 84484; 85379; 86850; 86900; 87077; 87186; 93005; 93970; 96374; 96375; 97162; 99291; A6261; G0482; J1630; J1650; J2060; J2543; J3370; J7030; J7512; J7517; A4315

== ENCOUNTER 2018-06-15 10:49 | Inpatient (IN) | payer MEDICARE, MEDICAID ==
[~2018-06-15] VITALS: Ht 157.5 cm; Wt 56.2 kg
[~2018-06-15 10:49] MED LIST changes: -ALEN70TA46 MT; +AMLO5TAB88 MT; -CALC1TAB99 PO; +CLON-457 PO; +CYAN100086 PO; +DEXA1TAB PO; +DOCU-150 MT; -ERGO2000 PO; -FERR325T6 MT; -HYDR200T35 PO; +HYDR200T80 MT; +LEVE500T19 MT; +LIP40 MT
[2018-06-15 12:02] LABS: BASOPHILS % 0.5 % (0.0-2.0); EOSINOPHILS % 0.3 % (0.0-5.0); HEMATOCRIT. 33.9 % (36.0-48.0); HEMOGLOBIN. 10.9 g/dL (12.0-16.0); LYMPHOCYTES % 9.6 % (20.0-50.0); MEAN CORPUSCULAR HEMOGLOBIN 31.7 pg (28.0-32.0); MEAN CORPUSCULAR VOLUME 98.5 fL (81.0-99.0); MEAN PLATELET VOLUME 7.7 fl (7.4-10.4); MONOCYTES % 4.8 % (2.0-8.0); NEUTROPHILS % 84.8 % (40.0-76.0); PLATELET 261 x1000/uL (130-400); RED BLOOD CELL COUNT 3.45 mill/uL (4.2-5.4); RED CELL DISTRIBUTION WIDTH 17.2 % (11.6-14.6)
[2018-06-15 12:09] LABS: CHLORIDE 110 mEq/L (98-107)
[2018-06-15 12:32] LABS: CLARITY URINE CLOUDY (CLEAR); COLOR URINE YELLOW (YELLOW); KETONES URINE NEGATIVE (NEGATIVE); LEUKOCYTE ESTERASE URINE 2+ (NEGATIVE); NITRITE URINE POSITIVE (NEGATIVE); OCCULT BLOOD URINE NEGATIVE (NEGATIVE); PROTEIN URINE NEGATIVE (NEGATIVE); SPECIFIC GRAVITY URINE 1.016 (1.005-1.030)
[2018-06-15] MEDS ORDERED: MORPHINE SULFATE 4 MG/ML CPJ (NOT FOR IM USE) IV STA (12:57)
[2018-06-15] MEDS ORDERED: ONDANSETRON HCL 4MG/2ML INJ IV STA (12:57)
[2018-06-15] MEDS ORDERED: CEFTRIAXONE 1 G PREMIX 50 ML IV ONE (13:15)
[2018-06-15] MEDS ORDERED: POTASSIUM CHLORIDE INJ 40 MEQ in DEXT 5% WATER 250 ML IV ONE (13:15)
[2018-06-15] MEDS ORDERED: DOCUSATE SODIUM 100MG CAPSULE PO PRN (16:15)
[2018-06-15] MEDS ORDERED: ONDANSETRON HCL 4MG/2ML INJ IV PRN (16:15)
[2018-06-15] MEDS ORDERED: CLONIDINE 0.1MG TABLET PO PRN (16:15)
[2018-06-15] MEDS ORDERED: LEVOFLOXACIN 500MG PREMIX 100 ML IV NR (17:19)
[2018-06-16 04:15] VITALS: BP 107/68
[2018-06-16 04:30] VITALS: BP 107/68
[2018-06-16] MEDS ORDERED: PRED5TAB48 PO (05:15)
[2018-06-16] MEDS ORDERED: ARIP10TA16 PO (05:15)
[2018-06-16] MEDS ORDERED: MYCO250C PO (05:15)
[2018-06-16] MEDS ORDERED: QUET50TA21 PO (05:15)
[2018-06-16] MEDS ORDERED: FERR325T6 PO (05:15)
[2018-06-16] MEDS ORDERED: DIAZ5TAB4 PO (05:15)
[2018-06-16] MEDS ORDERED: [UNRECOGNIZED DRUG - OTHER] (05:15)
[2018-06-16 08:00] VITALS: BP 89/67
[2018-06-16] MEDS: SODIUM CHLORIDE 0.45% 1,000 ML IV SCH ×2 (08:30→13:37)
[2018-06-16] MEDS: ENOXAPARIN 40MG/0.4ML SYR SUBCUT SCH ×3 (08:44→12:59)
[2018-06-16 16:23] LABS: BASOPHILS % 1.1 % (0.0-2.0); EOSINOPHILS % 2.1 % (0.0-5.0); HEMATOCRIT. 32.7 % (36.0-48.0); HEMOGLOBIN. 10.7 g/dL (12.0-16.0); LYMPHOCYTES % 19.2 % (20.0-50.0); MEAN CORPUSCULAR HEMOGLOBIN 31.9 pg (28.0-32.0); MEAN CORPUSCULAR VOLUME 97.4 fL (81.0-99.0); MEAN PLATELET VOLUME 7.8 fl (7.4-10.4); MONOCYTES % 8.3 % (2.0-8.0); NEUTROPHILS % 69.3 % (40.0-76.0); PLATELET 235 x1000/uL (130-400); RED BLOOD CELL COUNT 3.35 mill/uL (4.2-5.4); RED CELL DISTRIBUTION WIDTH 17.5 % (11.6-14.6)
[2018-06-16 16:35] LABS: CHLORIDE 108 mEq/L (98-107)
[2018-06-16 16:43] LABS: HDL CHOLESTEROL 65 mg/dL (40-59)
[2018-06-16 16:44] LABS: LDL CHOLESTEROL 61 mg/dL (5-100)
[2018-06-16] MEDS ORDERED: LEVOFLOXACIN 500MG PREMIX 100 ML IV SCH (17:20)
[2018-06-16] MEDS: LEVOFLOXACIN 500MG PREMIX 100 ML IV SCH (18:52)
[2018-06-16 20:00] VITALS: BP 107/79
[2018-06-16] MEDS: LEVETIRACETAM 500MG TABLET PO SCH (20:45)
[2018-06-17] VITALS: BP 105/78
[2018-06-17] MEDS: ACETAMINOPHEN 325MG TABLET PO PRN ×2 (00:04→21:39)
[2018-06-17] MEDS: IPRATROPIUM/ALBUTEROL 0.5-3(2.5)MG/3ML NEB INH SCH ×4 (01:01→21:25)
[2018-06-17 04:00] VITALS: BP 101/71
[2018-06-17] MEDS: SODIUM CHLORIDE 0.45% 1,000 ML IV SCH ×2 (04:40→15:09)
[2018-06-17 06:20] LABS: BASOPHILS % 0.9 % (0.0-2.0); EOSINOPHILS % 2.9 % (0.0-5.0); HEMATOCRIT. 32.6 % (36.0-48.0); HEMOGLOBIN. 10.6 g/dL (12.0-16.0); LYMPHOCYTES % 32.3 % (20.0-50.0); MEAN CORPUSCULAR HEMOGLOBIN 31.3 pg (28.0-32.0); MEAN CORPUSCULAR VOLUME 96.6 fL (81.0-99.0); MEAN PLATELET VOLUME 8.1 fl (7.4-10.4); MONOCYTES % 9.7 % (2.0-8.0); NEUTROPHILS % 54.2 % (40.0-76.0); PLATELET 229 x1000/uL (130-400); RED BLOOD CELL COUNT 3.38 mill/uL (4.2-5.4); RED CELL DISTRIBUTION WIDTH 17.4 % (11.6-14.6)
[2018-06-17 06:43] LABS: CHLORIDE 108 mEq/L (98-107)
[2018-06-17 08:00] VITALS: BP 90/67
[2018-06-17] MEDS: ENOXAPARIN 40MG/0.4ML SYR SUBCUT SCH (08:34)
[2018-06-17] MEDS: LEVETIRACETAM 500MG TABLET PO SCH ×2 (08:34→21:39)
[2018-06-17 12:00] VITALS: BP 107/85
[2018-06-17] MEDS: TRAMADOL 50MG TABLET PO PRN (12:35)
[2018-06-17 16:00] VITALS: BP 101/70
[2018-06-17] MEDS: LEVOFLOXACIN 500MG PREMIX 100 ML IV SCH (19:34)
[2018-06-17 20:00] VITALS: BP 109/76
[2018-06-18] VITALS: BP 107/72
[2018-06-18] MEDS: SODIUM CHLORIDE 0.45% 1,000 ML IV SCH ×3 (00:43→21:09)
[2018-06-18] MEDS: IPRATROPIUM/ALBUTEROL 0.5-3(2.5)MG/3ML NEB INH SCH ×4 (01:45→21:01)
[2018-06-18] MEDS: TRAMADOL 50MG TABLET PO PRN ×2 (03:53→21:28)
[2018-06-18 04:00] VITALS: BP 125/64
[2018-06-18 07:15] LABS: BASOPHILS % 0.7 % (0.0-2.0); EOSINOPHILS % 2.8 % (0.0-5.0); HEMATOCRIT. 33.1 % (36.0-48.0); HEMOGLOBIN. 10.8 g/dL (12.0-16.0); LYMPHOCYTES % 19.3 % (20.0-50.0); MEAN CORPUSCULAR HEMOGLOBIN 31.6 pg (28.0-32.0); MEAN CORPUSCULAR VOLUME 96.8 fL (81.0-99.0); MEAN PLATELET VOLUME 8.1 fl (7.4-10.4); MONOCYTES % 9.2 % (2.0-8.0); PLATELET 235 x1000/uL (130-400); RED BLOOD CELL COUNT 3.42 mill/uL (4.2-5.4); RED CELL DISTRIBUTION WIDTH 16.8 % (11.6-14.6)
[2018-06-18 07:24] LABS: CHLORIDE 107 mEq/L (98-107)
[2018-06-18 08:00] VITALS: BP 119/76
[2018-06-18] MEDS: LEVETIRACETAM 500MG TABLET PO SCH ×2 (08:19→21:05)
[2018-06-18] MEDS: ENOXAPARIN 40MG/0.4ML SYR SUBCUT SCH (08:19)
[2018-06-18] MEDS: LEVOFLOXACIN 500MG TABLET PO SCH (17:14)
[2018-06-18 20:00] VITALS: BP 107/86
[2018-06-19] VITALS: BP 138/96
[2018-06-19] MEDS: IPRATROPIUM/ALBUTEROL 0.5-3(2.5)MG/3ML NEB INH SCH ×3 (01:05→21:07)
[2018-06-19 04:00] VITALS: BP 102/84
[2018-06-19] MEDS: ENOXAPARIN 40MG/0.4ML SYR SUBCUT SCH (10:18)
[2018-06-19 12:00] VITALS: BP_SYST 118; BP_SYST 125; BP_DIAS 83; BP_DIAS 95
[2018-06-19] MEDS: CARBAMAZEPINE 200MG TABLET PO SCH ×2 (15:00→22:27)
[2018-06-19 16:00] VITALS: BP 125/95
[2018-06-19] MEDS: LEVOFLOXACIN 500MG TABLET PO SCH (16:46)
[2018-06-19] MEDS ORDERED: CLONIDINE 0.1MG TABLET PO PRN (19:15)
[2018-06-19 20:15] VITALS: BP 129/78
[2018-06-19] MEDS: LEVETIRACETAM 500MG TABLET PO SCH (22:27)
[2018-06-19] MEDS: MYCOPHENOLATE MOFETIL 250MG CAPSULE PO SCH (22:27)
[2018-06-19] MEDS: QUETIAPINE FUMARATE 50MG TABLET PO SCH (22:27)
[2018-06-19] MEDS: ATORVASTATIN CALCIUM 40MG TABLET PO SCH (22:27)
[2018-06-20] VITALS: BP 125/86
[2018-06-20 04:00] VITALS: BP 127/72
[2018-06-20 08:00] VITALS: BP 98/65
[2018-06-20] MEDS: ATENOLOL 25MG TABLET PO SCH (09:00)
[2018-06-20] MEDS: LEVETIRACETAM 500MG TABLET PO SCH ×2 (09:01→20:28)
[2018-06-20] MEDS: FERROUS SULFATE 325MG TABLET PO SCH ×3 (09:01→17:29)
[2018-06-20] MEDS: HYDROXYCHLOROQUINE SULFATE 200MG TABLET PO SCH (09:02)
[2018-06-20] MEDS: CARBAMAZEPINE 200MG TABLET PO SCH ×2 (09:02→20:28)
[2018-06-20] MEDS: MYCOPHENOLATE MOFETIL 250MG CAPSULE PO SCH ×2 (09:02→20:28)
[2018-06-20] MEDS: PREDNISONE 5MG TABLET PO SCH (09:02)
[2018-06-20] MEDS: ENOXAPARIN 40MG/0.4ML SYR SUBCUT SCH (09:04)
[2018-06-20] MEDS: DOCUSATE SODIUM 100MG CAPSULE PO SCH (09:05)
[2018-06-20 12:00] VITALS: BP 94/69
[2018-06-20 15:48] LABS: BASOPHILS % 0.5 % (0.0-2.0); EOSINOPHILS % 0.4 % (0.0-5.0); HEMATOCRIT. 36.7 % (36.0-48.0); LYMPHOCYTES % 17.6 % (20.0-50.0); MEAN CORPUSCULAR HEMOGLOBIN 31.2 pg (28.0-32.0); MEAN CORPUSCULAR VOLUME 95.7 fL (81.0-99.0); MEAN PLATELET VOLUME 7.9 fl (7.4-10.4); MONOCYTES % 8.1 % (2.0-8.0); NEUTROPHILS % 73.4 % (40.0-76.0); PLATELET 320 x1000/uL (130-400); RED BLOOD CELL COUNT 3.83 mill/uL (4.2-5.4); RED CELL DISTRIBUTION WIDTH 16.7 % (11.6-14.6)
[2018-06-20 15:52] LABS: CHLORIDE 106 mEq/L (98-107)
[2018-06-20 16:00] VITALS: BP 102/67
[2018-06-20] MEDS: LEVOFLOXACIN 500MG TABLET PO SCH (16:47)
[2018-06-20] MEDS: ACETAMINOPHEN 325MG TABLET PO PRN (16:47)
[2018-06-20] MEDS: SODIUM CHLORIDE 0.45% 1,000 ML IV SCH (17:30)
[2018-06-20 20:00] VITALS: BP 98/69
[2018-06-20] MEDS: QUETIAPINE FUMARATE 50MG TABLET PO SCH (20:28)
[2018-06-20] MEDS: ATORVASTATIN CALCIUM 40MG TABLET PO SCH (20:28)
[2018-06-21] VITALS: BP 146/83
[2018-06-21] MEDS: SODIUM CHLORIDE 0.45% 1,000 ML IV SCH (00:17)
[2018-06-21] MEDS: IPRATROPIUM/ALBUTEROL 0.5-3(2.5)MG/3ML NEB INH SCH ×4 (03:43→20:48)
[2018-06-21 04:00] VITALS: BP 153/116
[2018-06-21 08:00] VITALS: BP 102/79
[2018-06-21] MEDS: DOCUSATE SODIUM 100MG CAPSULE PO SCH (08:32)
[2018-06-21] MEDS: PREDNISONE 5MG TABLET PO SCH (08:32)
[2018-06-21] MEDS: LEVETIRACETAM 500MG TABLET PO SCH ×2 (08:32→22:29)
[2018-06-21] MEDS: FERROUS SULFATE 325MG TABLET PO SCH ×2 (08:32→12:50)
[2018-06-21] MEDS: MYCOPHENOLATE MOFETIL 250MG CAPSULE PO SCH ×2 (08:33→22:29)
[2018-06-21] MEDS: CARBAMAZEPINE 200MG TABLET PO SCH ×2 (08:34→22:29)
[2018-06-21] MEDS: ATENOLOL 25MG TABLET PO SCH (08:34)
[2018-06-21] MEDS: HYDROXYCHLOROQUINE SULFATE 200MG TABLET PO SCH (08:34)
[2018-06-21] MEDS: ENOXAPARIN 40MG/0.4ML SYR SUBCUT SCH (08:35)
[2018-06-21 09:07] LABS: HEMATOCRIT. 39.1 % (36.0-48.0); HEMOGLOBIN. 12.4 g/dL (12.0-16.0); LYMPHOCYTES % 18.6 % (20.0-50.0); MEAN CORPUSCULAR VOLUME 97.4 fL (81.0-99.0); MEAN PLATELET VOLUME 8.4 fl (7.4-10.4); MONOCYTES % 7.6 % (2.0-8.0); NEUTROPHILS % 71.8 % (40.0-76.0); PLATELET 224 x1000/uL (130-400); RED BLOOD CELL COUNT 4.01 mill/uL (4.2-5.4); RED CELL DISTRIBUTION WIDTH 16.6 % (11.6-14.6)
[2018-06-21 09:17] LABS: CHLORIDE 107 mEq/L (98-107)
[2018-06-21 12:00] VITALS: BP 127/82
[2018-06-21 16:00] VITALS: BP 112/83
[2018-06-21] MEDS: LEVOFLOXACIN 500MG TABLET PO SCH (16:55)
[2018-06-21] MEDS: QUETIAPINE FUMARATE 50MG TABLET PO SCH (16:55)
[2018-06-21 20:42] VITALS: BP 115/78
[2018-06-21] MEDS: ATORVASTATIN CALCIUM 40MG TABLET PO SCH (22:29)
[2018-06-22 00:01] VITALS: BP 116/77
[2018-06-22] MEDS: IPRATROPIUM/ALBUTEROL 0.5-3(2.5)MG/3ML NEB INH SCH ×4 (02:27→21:42)
[2018-06-22 04:18] VITALS: BP 135/99
[2018-06-22 08:00] VITALS: BP 103/75
[2018-06-22] MEDS: ATENOLOL 25MG TABLET PO SCH (09:00)
[2018-06-22] MEDS: DOCUSATE SODIUM 100MG CAPSULE PO SCH (09:38)
[2018-06-22] MEDS: HYDROXYCHLOROQUINE SULFATE 200MG TABLET PO SCH (09:38)
[2018-06-22] MEDS: QUETIAPINE FUMARATE 50MG TABLET PO SCH ×2 (09:38→22:32)
[2018-06-22] MEDS: MYCOPHENOLATE MOFETIL 250MG CAPSULE PO SCH ×2 (09:39→22:31)
[2018-06-22] MEDS: LEVETIRACETAM 500MG TABLET PO SCH ×2 (09:39→22:35)
[2018-06-22] MEDS: PREDNISONE 5MG TABLET PO SCH (09:39)
[2018-06-22] MEDS: CARBAMAZEPINE 200MG TABLET PO SCH ×2 (09:39→22:32)
[2018-06-22] MEDS: ENOXAPARIN 40MG/0.4ML SYR SUBCUT SCH (09:41)
[2018-06-22 12:04] VITALS: BP 100/67
[2018-06-22 16:00] VITALS: BP 107/71
[2018-06-22 20:06] VITALS: BP 107/68
[2018-06-22] MEDS: LEVOFLOXACIN 500MG TABLET PO SCH (22:31)
[2018-06-22] MEDS: ATORVASTATIN CALCIUM 40MG TABLET PO SCH (22:31)
[2018-06-23] VITALS: BP 97/63
[2018-06-23 04:00] VITALS: BP 124/74
[2018-06-23] MEDS: IPRATROPIUM/ALBUTEROL 0.5-3(2.5)MG/3ML NEB INH SCH (04:45)
[2018-06-23] MEDS: ENOXAPARIN 40MG/0.4ML SYR SUBCUT SCH (09:00)
[2018-06-23] MEDS: ATENOLOL 25MG TABLET PO SCH (09:00)
[2018-06-23] MEDS: DOCUSATE SODIUM 100MG CAPSULE PO SCH (09:00)
[2018-06-23 12:00] VITALS: BP 122/78
[2018-06-23] MEDS: CARBAMAZEPINE 200MG TABLET PO SCH (13:17)
[2018-06-23] MEDS: QUETIAPINE FUMARATE 50MG TABLET PO SCH (13:17)
[2018-06-23] MEDS: MYCOPHENOLATE MOFETIL 250MG CAPSULE PO SCH (13:18)
[2018-06-23] MEDS: PREDNISONE 5MG TABLET PO SCH (13:19)
[2018-06-23] MEDS: LEVETIRACETAM 500MG TABLET PO SCH (13:19)
[2018-06-23 16:00] VITALS: BP 116/91
[2018-06-23] MEDS: LEVOFLOXACIN 500MG TABLET PO SCH (17:39)
[2018-06-23] MEDS: HYDROXYCHLOROQUINE SULFATE 200MG TABLET PO SCH (17:39)
[2018-06-23 17:42] VITALS: BP_SYST 91
== END 2018-06-23 18:33 | DRG 100 ==
LOC: ER 11:07 → 6EST 15:59 → ENRESERV 06-16 03:17 → 6EST 06-16 04:45 → 6WST 06-19 20:30
PROVIDERS: ADMIT Internal Medicine Nephrology; ATTEND Internal Medicine Nephrology
PROC: 4A00X4Z Measurement of Central Nervous Electrical Activity, External Approach (ICD-10-PCS; principal; 2018-06-18)
DX: G40.909 Epilepsy, unspecified, not intractable, without status epilepticus (principal); E43 Unspecified severe protein-calorie malnutrition; G92 Toxic encephalopathy; S32.591A Other specified fracture of right pubis, initial encounter for closed fracture; N39.0 Urinary tract infection, site not specified; J98.11 Atelectasis; E46 Unspecified protein-calorie malnutrition; R47.01 Aphasia; I69.351 Hemiplegia and hemiparesis following cerebral infarction affecting right dominant side; M32.9 Systemic lupus erythematosus, unspecified; I11.0 Hypertensive heart disease with heart failure; I50.9 Heart failure, unspecified; D64.9 Anemia, unspecified; E11.43 Type 2 diabetes mellitus with diabetic autonomic (poly)neuropathy; B96.20 Unspecified Escherichia coli [E. coli] as the cause of diseases classified elsewhere; E78.5 Hyperlipidemia, unspecified; E87.6 Hypokalemia; F03.90 Unspecified dementia, unspecified severity, without behavioral disturbance, psychotic disturbance, mood disturbance, and anxiety; Z96.643 Presence of artificial hip joint, bilateral; W18.30XA Fall on same level, unspecified, initial encounter; H53.461 Homonymous bilateral field defects, right side; K80.20 Calculus of gallbladder without cholecystitis without obstruction; M19.90 Unspecified osteoarthritis, unspecified site; M85.80 Other specified disorders of bone density and structure, unspecified site; R13.10 Dysphagia, unspecified; Y93.89 Activity, other specified; Y99.8 Other external cause status; Y92.009 Unspecified place in unspecified non-institutional (private) residence as the place of occurrence of the external cause; Z86.718 Personal history of other venous thrombosis and embolism; Z68.22 Body mass index [BMI] 22.0-22.9, adult; Z78.1 Physical restraint status; Z95.828 Presence of other vascular implants and grafts; Z90.49 Acquired absence of other specified parts of digestive tract; Z88.5 Allergy status to narcotic agent; Z79.899 Other long term (current) drug therapy; R55 Syncope and collapse
CPT/HCPCS: 36415; 70544; 70551; 71045; 72192; 73502; 73700; 80048; 80061; 83880; 84484; 87077; 87186; 92610; 93005; 93306; 93880; 93970; 94640; 97162; 97164; 97165; 97168; 97530; 99285; C1893; J0696; J1650; J1956; J2270; J2405; J3480; J7060; J7512; J7517; J7620; A4315

== ENCOUNTER 2021-09-04 15:44 | Emergency (ER) | payer MEDICARE, MEDICAID ==
[~2021-09-04] VITALS: Ht 165.1 cm; Wt 82.0 kg
[~2021-09-04 15:44] MED LIST changes: +ARIP10TA56 PO; +DIAZ5TAB4 PO; +FERR325T6 PO; +FURO-152 PO; +MYCO250C PO; +PRED5TAB48 PO; +QUET25TA PO; +QUET50TA23 PO; +[UNRECOGNIZED DRUG - OTHER]
[2021-09-04 15:47] VITALS: BP 136/77
[2021-09-04 16:38] LABS: BASOPHILS % 1.1 % (0.0-2.0); HEMATOCRIT. 38.2 % (36.0-48.0); HEMOGLOBIN. 12.7 g/dL (12.0-16.0); LYMPHOCYTES % 36.6 % (20.0-50.0); MEAN CORPUSCULAR HEMOGLOBIN 32.6 pg (28.0-32.0); MEAN CORPUSCULAR VOLUME 98.3 fL (81.0-99.0); MEAN PLATELET VOLUME 7.7 fl (7.4-10.4); MONOCYTES % 12.9 % (2.0-8.0); NEUTROPHILS % 48.4 % (40.0-76.0); PLATELET 191 x1000/uL (130-400); RED BLOOD CELL COUNT 3.88 mill/uL (4.2-5.4); RED CELL DISTRIBUTION WIDTH 13.5 % (11.6-14.6)
[2021-09-04 16:48] LABS: CHLORIDE 110 mEq/L (98-107)
[2021-09-05] MEDS ORDERED: CARB200T PO (18:35)
== END 2021-09-04 22:30 | disposition left against medical advice (07) ==
LOC: ER 15:44
DX: Z53.21 Procedure and treatment not carried out due to patient leaving prior to being seen by health care provider (principal); I49.9 Cardiac arrhythmia, unspecified
CPT/HCPCS: 36415; 71045; 80053; 83880; 84484; 85025; 93005

== ENCOUNTER 2021-09-05 10:59 | Inpatient (IN) | payer MEDICARE, MEDICAID ==
[~2021-09-05] VITALS: Ht 167.6 cm; Wt 79.4 kg
[2021-09-05 12:55] LABS: BASOPHILS % 0.8 % (0.0-2.0); EOSINOPHILS % 2.5 % (0.0-5.0); HEMATOCRIT. 37.6 % (36.0-48.0); HEMOGLOBIN. 12.5 g/dL (12.0-16.0); LYMPHOCYTES % 40.7 % (20.0-50.0); MEAN CORPUSCULAR HEMOGLOBIN 32.7 pg (28.0-32.0); MEAN PLATELET VOLUME 8.4 fl (7.4-10.4); MONOCYTES % 10.8 % (2.0-8.0); NEUTROPHILS % 45.2 % (40.0-76.0); PLATELET 191 x1000/uL (130-400); RED BLOOD CELL COUNT 3.84 mill/uL (4.2-5.4)
[2021-09-05] MEDS ORDERED: ASPIRIN 325MG EC TABLET PO ONE (13:45)
[2021-09-05 14:02] LABS: CHLORIDE 106 mEq/L (98-107)
[2021-09-05] MEDS ORDERED: ONDANSETRON HCL 4MG/2ML INJ IV PRN (14:30)
[2021-09-05] MEDS ORDERED: ACETAMINOPHEN 325MG TABLET PO PRN ×2 (14:30)
[2021-09-05] MEDS ORDERED: NITROGLYCERIN 0.4MG TABLET SL SL PRN (14:30)
[2021-09-05] MEDS ORDERED: CLONIDINE 0.1MG TABLET PO PRN (14:30)
[2021-09-05] MEDS ORDERED: TRAMADOL 50MG TABLET PO PRN (14:30)
[2021-09-05] MEDS ORDERED: NA PHOS,M-B/NA PHOS,DI-BA ENEMA 118ML PR PRN (14:30)
[2021-09-05] MEDS ORDERED: MAGNESIUM/ALUMINUM HYDROXIDE/SIMETHICONE 30ML UDC PO PRN (14:30)
[2021-09-05] MEDS ORDERED: ENOXAPARIN 40MG/0.4ML SYR SUBCUT SCH (14:30)
[2021-09-05] MEDS ORDERED: GUAIFENESIN 200MG/10ML SUGAR FREE UDC PO PRN (14:30)
[2021-09-05] MEDS ORDERED: KETOROLAC 15MG/ML VIAL IV PRN (14:30)
[2021-09-05] MEDS ORDERED: DOCUSATE SODIUM 100MG CAPSULE PO PRN (14:30)
[2021-09-05] MEDS ORDERED: NALOXONE HCL 0.4MG/ML VIAL IV PRN (14:30)
[2021-09-05] MEDS ORDERED: IPRATROPIUM/ALBUTEROL 0.5-3(2.5)MG/3ML NEB NEB PRN (14:30)
[2021-09-05] MEDS: AMLODIPINE 5MG TABLET PO SCH (14:58)
[2021-09-05] MEDS: HYDROXYCHLOROQUINE SULFATE 200MG TABLET PO SCH (15:00)
[2021-09-05 15:30] LABS: C REACTIVE PROTEIN QUANT 5.4 mg/L (0.0-3.0); ETHANOL BLOOD < 10 mg/dL; HDL CHOLESTEROL 81 mg/dL (40-59); LDL CHOLESTEROL 53 mg/dL (5-100); T4 FREE 0.72 ng/dL (0.76-1.46); TOTAL IRON BINDING CAPACITY 230 ug/dL (250-450)
[2021-09-05 15:40] LABS: *AMPHETAMINES SCREEN URINE NEGATIVE (NEGATIVE); *BARBITURATES SCREEN URINE NEGATIVE (NEGATIVE); *BENZODIAZEPINES SCREEN URINE NEGATIVE (NEGATIVE); *COCAINE SCREEN URINE NEGATIVE (NEGATIVE); CANNABINOID URINE SCREEN NEGATIVE (NEGATIVE); METHADONE URINE SCREEN NEGATIVE (NEGATIVE); OPIATES URINE SCREEN NEGATIVE (NEGATIVE); PHENCYCLIDINE URINE SCREEN NEGATIVE (NEGATIVE)
[2021-09-05 15:55] LABS: FOLIC ACID (FOLATE) SERUM 10.1 ng/mL (>5.38)
[2021-09-05 18:09] VITALS: BP 135/80
[2021-09-05 18:11] VITALS: BP 135/80
[2021-09-05 18:23] VITALS: BP 112/88
[2021-09-05] MEDS ORDERED: CARB200T PO (18:35)
[2021-09-05 20:00] VITALS: BP 133/82
[2021-09-05] MEDS ORDERED: ZOLPIDEM TARTRATE 5MG TABLET PO PRN (21:00)
[2021-09-05] MEDS: FAMOTIDINE 20MG/2ML VIAL IV SCH (21:45)
[2021-09-05] MEDS: LEVETIRACETAM 500MG TABLET PO SCH (21:45)
[2021-09-06] VITALS: BP 122/78
[2021-09-06 01:24] LABS: CREATINE KINASE MB FRACTION < 1.0 ng/mL (0.5-3.6)
[2021-09-06 04:00] VITALS: BP 132/77
[2021-09-06 08:00] VITALS: BP 105/68
[2021-09-06] MEDS ORDERED: ASPIRIN 325MG EC TABLET PO SCH (09:00)
[2021-09-06 09:01] LABS: BASOPHILS % 1.1 % (0.0-2.0); EOSINOPHILS % 3.5 % (0.0-5.0); HEMOGLOBIN. 12.3 g/dL (12.0-16.0); LYMPHOCYTES % 40.6 % (20.0-50.0); MEAN CORPUSCULAR HEMOGLOBIN 32.4 pg (28.0-32.0); MEAN CORPUSCULAR VOLUME 97.6 fL (81.0-99.0); MEAN PLATELET VOLUME 8.4 fl (7.4-10.4); MONOCYTES % 14.9 % (2.0-8.0); NEUTROPHILS % 39.9 % (40.0-76.0); PLATELET 186 x1000/uL (130-400); RED BLOOD CELL COUNT 3.79 mill/uL (4.2-5.4); RED CELL DISTRIBUTION WIDTH 13.3 % (11.6-14.6)
[2021-09-06] MEDS: AMLODIPINE 5MG TABLET PO SCH (09:31)
[2021-09-06] MEDS: LEVETIRACETAM 500MG TABLET PO SCH ×2 (09:32→21:13)
[2021-09-06] MEDS: FAMOTIDINE 20MG/2ML VIAL IV SCH ×2 (09:32→21:13)
[2021-09-06] MEDS: ASPIRIN 81MG EC TABLET PO SCH (09:32)
[2021-09-06 09:37] LABS: CREATINE KINASE 1247 IU/L (26-192); CREATINE KINASE MB FRACTION < 1.0 ng/mL (0.5-3.6)
[2021-09-06 09:51] LABS: CHLORIDE 108 mEq/L (98-107)
[2021-09-06 10:13] LABS: CREATINE KINASE 1249 IU/L (26-192); PHOSPHORUS 2.7 mg/dL (2.5-4.9)
[2021-09-06 12:00] VITALS: BP 144/88
[2021-09-06] MEDS: HYDROXYCHLOROQUINE SULFATE 200MG TABLET PO SCH (15:29)
[2021-09-06] MEDS: ENOXAPARIN 40MG/0.4ML SYR SUBCUT SCH (15:30)
[2021-09-06 16:00] VITALS: BP 143/90
[2021-09-06 20:00] VITALS: BP 139/92
[2021-09-07] VITALS: BP 109/85
[2021-09-07 04:00] VITALS: BP 125/81
[2021-09-07 08:00] VITALS: BP 120/88
[2021-09-07] MEDS: LEVETIRACETAM 500MG TABLET PO SCH ×2 (09:12→20:55)
[2021-09-07] MEDS: HYDROXYCHLOROQUINE SULFATE 200MG TABLET PO SCH (09:12)
[2021-09-07] MEDS: ASPIRIN 81MG EC TABLET PO SCH (09:12)
[2021-09-07] MEDS: FAMOTIDINE 20MG/2ML VIAL IV SCH (09:12)
[2021-09-07] MEDS: AMLODIPINE 5MG TABLET PO SCH (09:12)
[2021-09-07] MEDS: ENOXAPARIN 40MG/0.4ML SYR SUBCUT SCH (09:12)
[2021-09-07] MEDS: LIDOCAINE 5% PATCH TOP SCH (09:13)
[2021-09-07 12:00] VITALS: BP 108/71
[2021-09-07 16:00] VITALS: BP 117/83
[2021-09-07 20:00] VITALS: BP 102/50
[2021-09-07] MEDS: FAMOTIDINE 20MG TABLET PO SCH (20:55)
[2021-09-08] VITALS: BP 103/46
[2021-09-08 04:00] VITALS: BP 112/76
[2021-09-08] MEDS: LIDOCAINE 5% PATCH TOP SCH (09:12)
[2021-09-08] MEDS: FAMOTIDINE 20MG TABLET PO SCH (09:13)
[2021-09-08] MEDS: LEVETIRACETAM 500MG TABLET PO SCH (09:13)
[2021-09-08] MEDS: ASPIRIN 81MG EC TABLET PO SCH (09:13)
[2021-09-08] MEDS: AMLODIPINE 5MG TABLET PO SCH (09:14)
[2021-09-08] MEDS: ENOXAPARIN 40MG/0.4ML SYR SUBCUT SCH (09:14)
[2021-09-08] MEDS: HYDROXYCHLOROQUINE SULFATE 200MG TABLET PO SCH (09:14)
[2021-09-08 10:15] VITALS: BP 121/90
[2021-09-10 08:09] LABS: LIDOCAINE None Detected ug/mL (1.5-5.0)
== END 2021-09-08 11:07 | disposition home or self-care (01) | DRG 206 ==
LOC: ER 10:59 → 7WST 13:51 → SUPCPDRO 14:10 → ENRESERV 17:06
PROVIDERS: ADMIT Internal Medicine; ATTEND Internal Medicine
DX: M94.0 Chondrocostal junction syndrome [Tietze] (principal); J98.11 Atelectasis; R65.10 Systemic inflammatory response syndrome (SIRS) of non-infectious origin without acute organ dysfunction; I11.0 Hypertensive heart disease with heart failure; G40.909 Epilepsy, unspecified, not intractable, without status epilepticus; E78.5 Hyperlipidemia, unspecified; D64.9 Anemia, unspecified; I50.9 Heart failure, unspecified; M19.90 Unspecified osteoarthritis, unspecified site; K80.80 Other cholelithiasis without obstruction; M32.9 Systemic lupus erythematosus, unspecified; Z20.822 Contact with and (suspected) exposure to COVID-19; I25.2 Old myocardial infarction; Z90.49 Acquired absence of other specified parts of digestive tract; Z86.73 Personal history of transient ischemic attack (TIA), and cerebral infarction without residual deficits
CPT/HCPCS: 36415; 71045; 80053; 80061; 80176; 80305; 80320; 82550; 82553; 82607; 82746; 83036; 83540; 83550; 83735; 83880; 84100; 84439; 84443; 84484; 85025; 85651; 86140; 87426; 93005; 93306; 93970; 97162; 97166; 99285; J1650; J3490; G0480

== ENCOUNTER 2022-05-03 10:30 | Emergency (ER) | payer MEDICARE, MEDICAID ==
[~2022-05-03] VITALS: Ht 162.6 cm; Wt 100.0 kg
[~2022-05-03 10:30] MED LIST changes: -AMLO5TAB88 MT; -ARIP10TA56 PO; +CARB200T PO; -CLON-457 PO; -CYAN100086 PO; -DEXA1TAB PO; -DIAZ5TAB4 PO; -DOCU-150 MT; -FERR325T6 PO; -MYCO250C PO; -QUET50TA23 PO
[2022-05-03 11:07] VITALS: BP 139/90
[2022-05-03 12:48] LABS: CLARITY URINE CLEAR (CLEAR); COLOR URINE YELLOW (YELLOW); KETONES URINE NEGATIVE (NEGATIVE); LEUKOCYTE ESTERASE URINE NEGATIVE (NEGATIVE); NITRITE URINE NEGATIVE (NEGATIVE); OCCULT BLOOD URINE NEGATIVE (NEGATIVE); PROTEIN URINE NEGATIVE (NEGATIVE); SPECIFIC GRAVITY URINE 1.011 (1.005-1.030); UROBILINOGEN URINE 0.2 E.U./dL (0.2-1.0)
[2022-05-03] MEDS ORDERED: ACETAMINOPHEN 325MG TABLET PO ONE (14:45)
[2022-05-03 14:50] LABS: BASOPHILS % 0.8 % (0.0-2.0); EOSINOPHILS % 0.2 % (0.0-5.0); HEMATOCRIT. 35.3 % (36.0-48.0); HEMOGLOBIN. 11.8 g/dL (12.0-16.0); LYMPHOCYTES % 23.9 % (20.0-50.0); MEAN CORPUSCULAR HEMOGLOBIN 33.2 pg (28.0-32.0); MEAN CORPUSCULAR VOLUME 99.1 fL (81.0-99.0); MEAN PLATELET VOLUME 7.6 fl (7.4-10.4); MONOCYTES % 8.2 % (2.0-8.0); NEUTROPHILS % 66.9 % (40.0-76.0); PLATELET 226 x1000/uL (130-400); RED BLOOD CELL COUNT 3.57 mill/uL (4.2-5.4); RED CELL DISTRIBUTION WIDTH 13.5 % (11.6-14.6)
[2022-05-03 15:14] LABS: CHLORIDE 106 mEq/L (98-107)
[2022-05-03] MEDS ORDERED: TOPUD PO (16:23)
== END 2022-05-03 17:16 | disposition home or self-care (01) ==
LOC: ER 10:30
DX: R10.9 Unspecified abdominal pain (principal); I11.0 Hypertensive heart disease with heart failure; I50.9 Heart failure, unspecified; E78.00 Pure hypercholesterolemia, unspecified; Z88.5 Allergy status to narcotic agent; Z98.890 Other specified postprocedural states; Z98.51 Tubal ligation status; Z90.49 Acquired absence of other specified parts of digestive tract; Z86.73 Personal history of transient ischemic attack (TIA), and cerebral infarction without residual deficits; Z86.59 Personal history of other mental and behavioral disorders; Z79.899 Other long term (current) drug therapy
CPT/HCPCS: 36415; 74176; 80053; 81003; 85025; 99284

== ENCOUNTER 2023-02-14 13:33 | Emergency (ER) | payer MEDICARE, MEDICAID ==
[~2023-02-14] VITALS: Ht 162.6 cm; Wt 78.7 kg
[~2023-02-14 13:33] MED LIST changes: +TOPUD PO
[2023-02-14 13:58] VITALS: O2SAT 97
[2023-02-14 14:53] LABS: BASOPHILS % 0.7 % (0.0-2.0); DIFFERENTIAL COMMENT 0; EOSINOPHILS % 0.2 % (0.0-5.0); HEMATOCRIT. 35.5 % (36.0-48.0); HEMOGLOBIN. 11.8 g/dL (12.0-16.0); LYMPHOCYTES % 29.8 % (20.0-50.0); MEAN CORPUSCULAR HEMOGLOBIN 33.2 pg (28.0-32.0); MEAN CORPUSCULAR HGB CONC 33.2 g/dL (31.0-37.0); MEAN CORPUSCULAR VOLUME 100.2 fL (81.0-99.0); MEAN PLATELET VOLUME 7.6 fl (7.4-10.4); MONOCYTES % 8.3 % (2.0-8.0); PLATELET 234 x1000/uL (130-400); RED BLOOD CELL COUNT 3.55 mill/uL (4.2-5.4); RED CELL DISTRIBUTION WIDTH 14.6 % (11.6-14.6); WHITE BLOOD COUNT 2.6 x1000/uL (4.5-11.0)
[2023-02-14 15:09] LABS: CHLORIDE 105 mEq/L (98-107); INDEX HEMOLYSI 1 (1-3); INDEX ICTERIC 1 (1-4); INDEX LIPEMIC 1 (1-3); POTASSIUM 4.2 mEq/L (3.5-5.1); SODIUM 138 mEq/L (136-145)
[2023-02-14 15:21] LABS: ALANINE AMINOTRANSFERASE 14 IU/L (13-61); ALBUMIN 4.4 g/dL (3.4-5.0); ASPARTATE AMINOTRANSFERASE 18 IU/L (15-37); BILIRUBIN TOTAL 0.4 mg/dL (0.1-1.0); CALCIUM 8.8 mg/dL (8.5-10.1); CARBON DIOXIDE 31 mEq/L (21-32); CREATININE 0.8 mg/dL (0.6-1.3); GLUCOSE 104 mg/dL (70-105); PROTEIN TOTAL 7.6 g/dL (6.0-8.3); UREA NITROGEN BLOOD 21 mg/dL (7-21)
[2023-02-14 19:59] VITALS: BP 155/103; PULSE 82; RESP 18; TEMP 98.2
== END 2023-02-14 20:07 | disposition home or self-care (01) ==
LOC: ER 14:37
DX: M79.89 Other specified soft tissue disorders (principal); I11.0 Hypertensive heart disease with heart failure; I50.9 Heart failure, unspecified; D64.9 Anemia, unspecified; E78.00 Pure hypercholesterolemia, unspecified; I25.2 Old myocardial infarction; Z86.73 Personal history of transient ischemic attack (TIA), and cerebral infarction without residual deficits; Z90.49 Acquired absence of other specified parts of digestive tract; Z98.51 Tubal ligation status; Z79.899 Other long term (current) drug therapy
CPT/HCPCS: 36415; 80053; 85025; 93970; 99291